=== PATIENT | male | born 1955 | race Caucasian/White ===

== ENCOUNTER → 2016-06-24 | Outpatient (CLI) | payer MEDICARE, MEDICAID ==
[~2016-06-24] MED LIST: ADVAIR; AMIT10TA6; CYCL-181; HYDR-1421; IBUP800T24; IPRA0.035; PRO AIR INH; TOBR0.3S4; [UNRECOGNIZED DRUG - OTHER]
== END | disposition home or self-care (01) ==
LOC: LAB 16:17
PROVIDERS: ATTEND Physician Assistant
DX: N39.0 Urinary tract infection, site not specified (principal)
CPT/HCPCS: 87086

== ENCOUNTER 2018-01-28 20:19 | Inpatient (IN) | payer MEDICARE, MEDICAID ==
[~2018-01-28] VITALS: Ht 180.3 cm; Wt 47.7 kg
[2018-01-28 21:29] LABS: Basophils # (auto) 0 uL; Basophils % (auto) 0.2 % (0.0-2.0); Eosinophils # (auto) 0.1 uL; Eosinophils % (auto) 0.8 % (0.0-7.0); Hematocrit 46.8 % (41.0-53.0); Hemoglobin 15.4 g/dL (13.5-17.5); Lymphocytes # (auto) 1.2 uL; Lymphocytes % (auto) 8.8 % (10.0-50.0); Mean Corpuscular Hemoglobin 27.6 pg (28.0-32.0); Mean Corpuscular Volume 83.8 fL (80.0-100.0); Monocytes # (auto) 1.7 uL; Monocytes % (auto) 12.1 % (0.0-12.0); Neutrophils # (auto) 10.7 uL; Neutrophils % (auto) 78.1 % (37.0-80.0); Platelet Count (auto) 360 10^3/uL (140-450); Red Blood Cells 5.58 10^6/uL (4.5-5.90); Red Cell Distribution Width 13.1 % (11.8-14.3); White Blood Cell 13.7 10^3/uL (4.4-10.8)
[2018-01-28] MEDS ORDERED: LEVOFLOXACIN 750MG 150 ML IV ONE (21:30)
[2018-01-28] MEDS ORDERED: ALBUTEROL SULF 2.5 MG/0.5ML(0.5%) NEB SOLN NEB ONE (21:30)
[2018-01-28] MEDS ORDERED: methylPREDNISolone SOD SUCC 125 MG/2 ML VL IV ONE (21:30)
[2018-01-28] MEDS ORDERED: IPRATROPIUM BROM 0.5 MG/2.5ML INH SOL NEB ONE (21:30)
[2018-01-28 21:55] LABS: Alanine Aminotransferase 37 U/L (16-61); Albumin 2.8 g/dL (3.4-5.0); Alkaline Phosphatase 73 U/L (45-117); Anion Gap 8 (5-15); Aspartate Aminotransferase 16 U/L (15-37); BUN/Creatinine Ratio 22.7; Bilirubin, Total 0.5 mg/dL (0.2-1.0); Blood Urea Nitrogen 27 mg/dL (7-18); Calcium 8.6 mg/dL (8.5-10.1); Carbon Dioxide 30 mmol/L (21-32); Chloride 98 mmol/L (98-107); GFR African American 80 mL/min; GFR Non-African American 66 mL/min; Glucose 91 mg/dL (74-106); Potassium 4.3 mmol/L (3.5-5.1); Sodium 136 mmol/L (136-145); Total Protein 7.7 g/dL (6.4-8.2)
[2018-01-28] MEDS ORDERED: TUBERCULIN PPD 5 UNIT/0.1 ML ID ONE (23:00)
[2018-01-29] MEDS ORDERED: MORPHINE SULF INJ 2 MG/ML SYRINGE 1ML IV PRN (00:15)
[2018-01-29] MEDS ORDERED: ACETAMINOPHEN 500 MG TAB PO PRN (00:15)
[2018-01-29] MEDS ORDERED: ALBUTEROL SULF 2.5 MG/0.5ML(0.5%) NEB SOLN NEB PRN (00:15)
[2018-01-29] MEDS: MAGNESIUM SULFATE 1GM/100ML 100 ML IV SCH ×2 (00:21→01:00)
[2018-01-29 03:21] VITALS: BP 132/73
[2018-01-29] MEDS: MEROPENEM 1gm/20ml IVPUSH 20 ML IV SCH ×4 (06:00→22:38)
[2018-01-29] MEDS: ALBUTEROL SULF 2.5 MG/0.5ML(0.5%) NEB SOLN NEB SCH ×3 (06:58→18:40)
[2018-01-29] MEDS: IPRATROPIUM BROM 0.5 MG/2.5ML INH SOL NEB SCH ×3 (06:58→18:40)
[2018-01-29] MEDS ORDERED: LEVOFLOXACIN 500MG 100 ML IV SCH (10:00)
[2018-01-29 10:33] LABS: Urine Bacteria NONE SEEN /hpf (None Seen); Urine Blood Negative /uL (Negative); Urine Specific Gravity 1.025 (1.001-1.035); Urine WBC <1 /hpf (0 - 3)
[2018-01-29] MEDS: ISONIAZID 300 MG TAB PO SCH (10:57)
[2018-01-29 13:00] VITALS: BP 94/61
[2018-01-29] MEDS ORDERED: TUBERCULIN PPD 5 UNIT/0.1 ML ID ONE (14:30)
[2018-01-29] MEDS: PANTOPRAZOLE 40 MG TAB PO SCH (15:30)
[2018-01-29 17:17] VITALS: BP 102/58
[2018-01-29] MEDS ORDERED: ENOXAPARIN SOD 30 MG/0.3 ML SYRINGE SC ONE (18:00)
[2018-01-29] MEDS: ACETYLCYSTEINE 10 %(100MG/ML) SOL 4ML NEB SCH (18:40)
[2018-01-29 21:51] VITALS: BP 111/62
[2018-01-29] MEDS: methylPREDNISolone SOD SUCC 40 MG/ML VL IV SCH (22:38)
[2018-01-30] MEDS: IPRATROPIUM BROM 0.5 MG/2.5ML INH SOL NEB SCH ×4 (00:01→19:26)
[2018-01-30] MEDS: ALBUTEROL SULF 2.5 MG/0.5ML(0.5%) NEB SOLN NEB SCH ×4 (00:01→19:26)
[2018-01-30] MEDS: ACETYLCYSTEINE 10 %(100MG/ML) SOL 4ML NEB SCH ×4 (00:01→19:26)
[2018-01-30] MEDS: MEROPENEM 1gm/20ml IVPUSH 20 ML IV SCH ×3 (05:53→21:38)
[2018-01-30] MEDS: methylPREDNISolone SOD SUCC 40 MG/ML VL IV SCH ×3 (05:54→21:38)
[2018-01-30 09:00] VITALS: BP 115/67
[2018-01-30] MEDS: PANTOPRAZOLE 40 MG TAB PO SCH (10:00)
[2018-01-30] MEDS: ISONIAZID 300 MG TAB PO SCH (10:01)
[2018-01-30 11:06] LABS: Hematocrit 45.4 % (41.0-53.0); Hemoglobin 14.8 g/dL (13.5-17.5); Mean Corpuscular Hemoglobin 27.1 pg (28.0-32.0); Mean Corpuscular Hgb Conc. 32.5 g/dL (32.0-36.0); Mean Corpuscular Volume 83.4 fL (80.0-100.0); Platelet Count (auto) 376 10^3/uL (140-450); Red Blood Cells 5.45 10^6/uL (4.5-5.90); White Blood Cell 19.8 10^3/uL (4.4-10.8)
[2018-01-30 11:19] LABS: Basophils % (manual) 0 (0.0-2.0); Blast Cells 0; Eosinophils % (manual) 0 (0-7); Lymphocytes % (manual) 0 (10.0-50.0); Metamyelocytes % 0; Myelocytes % 0; Promyelocytes % 0; Reactive Lymphocytes 0
[2018-01-30 11:21] LABS: BUN/Creatinine Ratio 26.7; Calcium 8.7 mg/dL (8.5-10.1); Potassium 4.8 mmol/L (3.5-5.1)
[2018-01-30 11:44] LABS: Band Neutrophils % (manual) 1; Monocytes % (manual) 1 (0-12)
[2018-01-30 13:00] VITALS: BP 98/64
[2018-01-30 22:00] VITALS: BP 104/63
[2018-01-31] MEDS: IPRATROPIUM BROM 0.5 MG/2.5ML INH SOL NEB SCH ×5 (00:44→19:30)
[2018-01-31] MEDS: ACETYLCYSTEINE 10 %(100MG/ML) SOL 4ML NEB SCH ×5 (00:44→19:31)
[2018-01-31] MEDS: ALBUTEROL SULF 2.5 MG/0.5ML(0.5%) NEB SOLN NEB SCH ×5 (00:44→19:30)
[2018-01-31 04:59] VITALS: BP 114/75
[2018-01-31 05:33] LABS: Basophils # (auto) 0 uL; Eosinophils # (auto) 0 uL; Hematocrit 41.6 % (41.0-53.0); Hemoglobin 13.9 g/dL (13.5-17.5); Lymphocytes # (auto) 0.4 uL; Lymphocytes % (auto) 2.6 % (10.0-50.0); Mean Corpuscular Hemoglobin 27.9 pg (28.0-32.0); Mean Corpuscular Hgb Conc. 33.5 g/dL (32.0-36.0); Mean Corpuscular Volume 83.3 fL (80.0-100.0); Monocytes # (auto) 0.2 uL; Monocytes % (auto) 1.2 % (0.0-12.0); Neutrophils # (auto) 15.5 uL; Neutrophils % (auto) 96.2 % (37.0-80.0); Platelet Count (auto) 330 10^3/uL (140-450); Red Blood Cells 4.99 10^6/uL (4.5-5.90); Red Cell Distribution Width 13.2 % (11.8-14.3); White Blood Cell 16.1 10^3/uL (4.4-10.8)
[2018-01-31 05:56] LABS: BUN/Creatinine Ratio 32.7; Calcium 8.2 mg/dL (8.5-10.1); Potassium 4.5 mmol/L (3.5-5.1)
[2018-01-31] MEDS: MEROPENEM 1gm/20ml IVPUSH 20 ML IV SCH ×3 (05:59→21:56)
[2018-01-31] MEDS: methylPREDNISolone SOD SUCC 40 MG/ML VL IV SCH ×3 (06:00→21:56)
[2018-01-31 08:50] VITALS: BP 114/61
[2018-01-31] MEDS: PANTOPRAZOLE 40 MG TAB PO SCH (09:25)
[2018-01-31] MEDS ORDERED: LACTULOSE 20Gm/30ML SOLN PO ONE (12:15)
[2018-01-31] MEDS ORDERED: LACTULOSE 20Gm/30ML SOLN PO PRN (12:15)
[2018-01-31 13:00] VITALS: BP 101/70
[2018-01-31 17:24] VITALS: BP 102/60
[2018-01-31] MEDS: Ensure Enlive Vanilla 8oz Bottle PO SCH (17:52)
[2018-01-31 22:30] VITALS: BP 114/78
[2018-02-01] MEDS: ALBUTEROL SULF 2.5 MG/0.5ML(0.5%) NEB SOLN NEB SCH ×4 (00:43→20:03)
[2018-02-01] MEDS: IPRATROPIUM BROM 0.5 MG/2.5ML INH SOL NEB SCH ×4 (00:44→20:03)
[2018-02-01] MEDS: ACETYLCYSTEINE 10 %(100MG/ML) SOL 4ML NEB SCH ×4 (00:44→20:04)
[2018-02-01 02:25] VITALS: BP 114/78
[2018-02-01 05:35] VITALS: BP 116/68
[2018-02-01] MEDS: MEROPENEM 1gm/20ml IVPUSH 20 ML IV SCH ×3 (05:52→21:54)
[2018-02-01] MEDS: methylPREDNISolone SOD SUCC 40 MG/ML VL IV SCH ×3 (05:52→21:54)
[2018-02-01] MEDS: Ensure Enlive Vanilla 8oz Bottle PO SCH ×3 (08:00→18:00)
[2018-02-01 08:51] VITALS: BP 117/72
[2018-02-01] MEDS: PANTOPRAZOLE 40 MG TAB PO SCH (11:26)
[2018-02-01 13:00] VITALS: BP 96/63
[2018-02-01] MEDS ORDERED: MORPHINE SULF INJ 2 MG/ML SYRINGE 1ML IV PRN (14:30)
[2018-02-01 17:19] VITALS: BP 103/69
[2018-02-01 21:50] VITALS: BP 107/64
[2018-02-02] MEDS: ACETYLCYSTEINE 10 %(100MG/ML) SOL 4ML NEB SCH ×4 (00:51→18:47)
[2018-02-02] MEDS: IPRATROPIUM BROM 0.5 MG/2.5ML INH SOL NEB SCH ×4 (00:52→18:46)
[2018-02-02] MEDS: ALBUTEROL SULF 2.5 MG/0.5ML(0.5%) NEB SOLN NEB SCH ×4 (00:52→18:46)
[2018-02-02 05:00] VITALS: BP 105/62
[2018-02-02] MEDS: MEROPENEM 1gm/20ml IVPUSH 20 ML IV SCH ×2 (05:57→14:28)
[2018-02-02] MEDS: methylPREDNISolone SOD SUCC 40 MG/ML VL IV SCH (05:57)
[2018-02-02] MEDS: Ensure Enlive Vanilla 8oz Bottle PO SCH ×3 (08:00→18:00)
[2018-02-02 09:20] VITALS: BP 107/73
[2018-02-02] MEDS ORDERED: predniSONE 20 MG TAB PO SCH (10:00)
[2018-02-02] MEDS: PANTOPRAZOLE 40 MG TAB PO SCH (10:00)
[2018-02-02] MEDS ORDERED: TOBRAMYCIN 300 MG/5 ML NEB SOLN NEB ONE (11:00)
[2018-02-02] MEDS ORDERED: LINEZOLID 600MG TABLET PO ONE (11:15)
[2018-02-02 13:00] VITALS: BP 114/67
[2018-02-02] MEDS ORDERED: TOBI NEB (14:38)
[2018-02-02] MEDS ORDERED: LEVO250T45 PO (14:38)
[2018-02-02] MEDS ORDERED: PANT40T PO (14:38)
[2018-02-02] MEDS ORDERED: LEVOFLOXACIN 250 MG TAB PO ONE (14:45)
[2018-02-02 17:04] VITALS: BP 103/65
[2018-02-02] MEDS: NYSTATIN (MOUTH-THROAT) 500,000 UNITS/5 ML SUSP MT SCH ×2 (18:00→22:00)
[2018-02-02] MEDS: LINEZOLID 600MG TABLET PO SCH (21:58)
[2018-02-02 22:00] VITALS: BP 115/61
[2018-02-02] MEDS: TOBRAMYCIN 300 MG/5 ML NEB SOLN NEB SCH (22:35)
[2018-02-03 04:52] VITALS: BP 119/79
[2018-02-03] MEDS: NYSTATIN (MOUTH-THROAT) 500,000 UNITS/5 ML SUSP MT SCH ×4 (07:09→21:42)
[2018-02-03] MEDS: ACETYLCYSTEINE 10 %(100MG/ML) SOL 4ML NEB SCH ×4 (07:15→20:03)
[2018-02-03] MEDS: ALBUTEROL SULF 2.5 MG/0.5ML(0.5%) NEB SOLN NEB SCH ×4 (07:15→20:03)
[2018-02-03] MEDS: IPRATROPIUM BROM 0.5 MG/2.5ML INH SOL NEB SCH ×4 (07:15→20:03)
[2018-02-03 09:00] VITALS: BP 110/71
[2018-02-03] MEDS: TOBRAMYCIN 300 MG/5 ML NEB SOLN NEB SCH ×2 (10:12→23:14)
[2018-02-03] MEDS: Ensure Enlive Vanilla 8oz Bottle PO SCH ×3 (11:09→18:45)
[2018-02-03] MEDS: PANTOPRAZOLE 40 MG TAB PO SCH (11:10)
[2018-02-03] MEDS: LINEZOLID 600MG TABLET PO SCH ×2 (11:10→21:42)
[2018-02-03] MEDS: predniSONE 20 MG TAB PO SCH (11:10)
[2018-02-03] MEDS: LEVOFLOXACIN 250 MG TAB PO SCH (11:10)
[2018-02-03 13:00] VITALS: BP 99/70
[2018-02-03 17:04] VITALS: BP 101/73
[2018-02-03 22:00] VITALS: BP 107/66
[2018-02-04] MEDS: ALBUTEROL SULF 2.5 MG/0.5ML(0.5%) NEB SOLN NEB SCH ×4 (00:46→19:40)
[2018-02-04] MEDS: IPRATROPIUM BROM 0.5 MG/2.5ML INH SOL NEB SCH ×4 (00:46→19:40)
[2018-02-04] MEDS: ACETYLCYSTEINE 10 %(100MG/ML) SOL 4ML NEB SCH ×4 (00:47→19:40)
[2018-02-04 03:37] VITALS: BP 107/66
[2018-02-04 04:55] VITALS: BP 99/63
[2018-02-04] MEDS: NYSTATIN (MOUTH-THROAT) 500,000 UNITS/5 ML SUSP MT SCH ×4 (05:56→22:07)
[2018-02-04 09:00] VITALS: BP 97/58
[2018-02-04] MEDS: TOBRAMYCIN 300 MG/5 ML NEB SOLN NEB SCH ×2 (10:45→22:46)
[2018-02-04] MEDS: Ensure Enlive Vanilla 8oz Bottle PO SCH ×3 (11:58→18:42)
[2018-02-04] MEDS: predniSONE 20 MG TAB PO SCH (11:58)
[2018-02-04] MEDS: PANTOPRAZOLE 40 MG TAB PO SCH (11:59)
[2018-02-04] MEDS: LEVOFLOXACIN 250 MG TAB PO SCH (11:59)
[2018-02-04] MEDS: LINEZOLID 600MG TABLET PO SCH ×2 (11:59→22:00)
[2018-02-04 13:00] VITALS: BP 96/65
[2018-02-04 17:19] VITALS: BP 93/71
[2018-02-04 22:00] VITALS: BP 103/63
[2018-02-05] MEDS: ALBUTEROL SULF 2.5 MG/0.5ML(0.5%) NEB SOLN NEB SCH ×4 (00:02→19:32)
[2018-02-05] MEDS: ACETYLCYSTEINE 10 %(100MG/ML) SOL 4ML NEB SCH ×4 (00:02→19:32)
[2018-02-05] MEDS: IPRATROPIUM BROM 0.5 MG/2.5ML INH SOL NEB SCH ×4 (00:02→19:32)
[2018-02-05 05:00] VITALS: BP 103/69
[2018-02-05] MEDS: NYSTATIN (MOUTH-THROAT) 500,000 UNITS/5 ML SUSP MT SCH ×4 (06:32→22:00)
[2018-02-05 08:52] LABS: Basophils # (auto) 0 uL; Eosinophils # (auto) 0.1 uL; Eosinophils % (auto) 0.6 % (0.0-7.0); Hematocrit 47.4 % (41.0-53.0); Hemoglobin 15.8 g/dL (13.5-17.5); Lymphocytes # (auto) 1.5 uL; Lymphocytes % (auto) 12.4 % (10.0-50.0); Mean Corpuscular Hemoglobin 27.9 pg (28.0-32.0); Mean Corpuscular Hgb Conc. 33.3 g/dL (32.0-36.0); Mean Corpuscular Volume 83.8 fL (80.0-100.0); Monocytes # (auto) 1.1 uL; Neutrophils # (auto) 9.6 uL; Platelet Count (auto) 278 10^3/uL (140-450); Red Blood Cells 5.66 10^6/uL (4.5-5.90); Red Cell Distribution Width 13.3 % (11.8-14.3); White Blood Cell 12.3 10^3/uL (4.4-10.8)
[2018-02-05 09:08] LABS: BUN/Creatinine Ratio 26.2; Calcium 8.3 mg/dL (8.5-10.1)
[2018-02-05 09:25] VITALS: BP 105/67
[2018-02-05] MEDS: TOBRAMYCIN 300 MG/5 ML NEB SOLN NEB SCH ×2 (09:50→22:15)
[2018-02-05] MEDS: predniSONE 20 MG TAB PO SCH (10:00)
[2018-02-05] MEDS: PANTOPRAZOLE 40 MG TAB PO SCH (10:00)
[2018-02-05] MEDS: Ensure Enlive Vanilla 8oz Bottle PO SCH ×3 (10:47→18:15)
[2018-02-05] MEDS: LEVOFLOXACIN 250 MG TAB PO SCH (10:47)
[2018-02-05] MEDS: LINEZOLID 600MG TABLET PO SCH ×2 (10:48→22:00)
[2018-02-05 12:30] VITALS: BP 82/59
[2018-02-05 16:12] VITALS: BP 94/61
[2018-02-05 22:00] VITALS: BP 99/64
[2018-02-06] MEDS: ACETYLCYSTEINE 10 %(100MG/ML) SOL 4ML NEB SCH ×4 (00:43→19:03)
[2018-02-06] MEDS: IPRATROPIUM BROM 0.5 MG/2.5ML INH SOL NEB SCH ×4 (00:43→19:02)
[2018-02-06] MEDS: ALBUTEROL SULF 2.5 MG/0.5ML(0.5%) NEB SOLN NEB SCH ×4 (00:43→19:03)
[2018-02-06 05:00] VITALS: BP 115/66
[2018-02-06] MEDS: NYSTATIN (MOUTH-THROAT) 500,000 UNITS/5 ML SUSP MT SCH ×4 (06:01→22:28)
[2018-02-06 09:00] VITALS: BP 108/67
[2018-02-06] MEDS: Ensure Enlive Vanilla 8oz Bottle PO SCH ×3 (09:32→18:24)
[2018-02-06] MEDS: predniSONE 5 MG TAB PO SCH (09:42)
[2018-02-06] MEDS: predniSONE 20 MG TAB PO SCH (09:42)
[2018-02-06] MEDS: LINEZOLID 600MG TABLET PO SCH ×2 (09:42→22:28)
[2018-02-06] MEDS: PANTOPRAZOLE 40 MG TAB PO SCH (09:42)
[2018-02-06] MEDS: LEVOFLOXACIN 250 MG TAB PO SCH (09:44)
[2018-02-06] MEDS ORDERED: predniSONE 20 MG TAB PO SCH (10:00)
[2018-02-06] MEDS: TOBRAMYCIN 300 MG/5 ML NEB SOLN NEB SCH ×2 (10:25→22:21)
[2018-02-06 12:49] VITALS: BP 91/55
[2018-02-06 22:00] VITALS: BP 119/71
[2018-02-07] MEDS: IPRATROPIUM BROM 0.5 MG/2.5ML INH SOL NEB SCH ×4 (00:18→11:47)
[2018-02-07] MEDS: ACETYLCYSTEINE 10 %(100MG/ML) SOL 4ML NEB SCH ×4 (00:18→11:47)
[2018-02-07] MEDS: ALBUTEROL SULF 2.5 MG/0.5ML(0.5%) NEB SOLN NEB SCH ×4 (00:19→11:48)
[2018-02-07 03:01] VITALS: BP 119/71
[2018-02-07 05:00] VITALS: BP 113/71
[2018-02-07] MEDS: NYSTATIN (MOUTH-THROAT) 500,000 UNITS/5 ML SUSP MT SCH ×2 (05:59→12:07)
[2018-02-07] MEDS: TOBRAMYCIN 300 MG/5 ML NEB SOLN NEB SCH (06:51)
[2018-02-07 08:00] VITALS: BP 113/72
[2018-02-07] MEDS: Ensure Enlive Vanilla 8oz Bottle PO SCH ×2 (08:16→12:07)
[2018-02-07 09:00] VITALS: BP 113/72
[2018-02-07] MEDS: LINEZOLID 600MG TABLET PO SCH (09:32)
[2018-02-07] MEDS: PANTOPRAZOLE 40 MG TAB PO SCH (09:32)
[2018-02-07] MEDS: predniSONE 5 MG TAB PO SCH (09:32)
[2018-02-07] MEDS: predniSONE 20 MG TAB PO SCH (09:32)
[2018-02-07] MEDS: LEVOFLOXACIN 250 MG TAB PO SCH (09:32)
[2018-02-07 11:40] VITALS: BP 108/65
== END 2018-02-07 15:52 | disposition home or self-care (01) | DRG 177 ==
LOC: ER 20:19 → TELE 20:20 → TELE-WESTW 01-29 08:19 → WEST WING 01-30 02:06
PROVIDERS: ADMIT Nurse Practitioner Family; ATTEND Internal Medicine
DX: J15.1 Pneumonia due to Pseudomonas (principal); E43 Unspecified severe protein-calorie malnutrition; S22.49XA Multiple fractures of ribs, unspecified side, initial encounter for closed fracture; J98.11 Atelectasis; Z68.1 Body mass index [BMI] 19.9 or less, adult; J47.0 Bronchiectasis with acute lower respiratory infection; J98.19 Other pulmonary collapse; J15.212 Pneumonia due to Methicillin resistant Staphylococcus aureus; M35.9 Systemic involvement of connective tissue, unspecified; Z16.24 Resistance to multiple antibiotics; M06.9 Rheumatoid arthritis, unspecified; J43.9 Emphysema, unspecified; T38.0X5A Adverse effect of glucocorticoids and synthetic analogues, initial encounter; Y92.89 Other specified places as the place of occurrence of the external cause; Z78.9 Other specified health status; Z82.3 Family history of stroke; Z82.49 Family history of ischemic heart disease and other diseases of the circulatory system; Z87.01 Personal history of pneumonia (recurrent); Z23 Encounter for immunization
CPT/HCPCS: 36415; 71045; 71250; 80048; 80053; 81001; 83880; 84484; 85007; 85025; 85027; 85379; 87040; 87070; 87077; 87186; 87205; 93005; 94640; 94667; 94668; 96365; 96366; 96375; 96379; J1956

== ENCOUNTER 2021-05-15 23:54 | Inpatient (IN) | payer MEDICARE, MEDICAID ==
[~2021-05-15] VITALS: Ht 180.3 cm; Wt 51.1 kg
[~2021-05-15 23:54] MED LIST changes: -AMIT10TA6; +AMIT1TAB34; -IBUP800T24; +IBUP800T27; +LEVO250T19 PO; +PANT40T PO; +TOBI NEB; -TOBR0.3S4
[2021-05-16 02:24] LABS: Basophils # (auto) 0 10 ^3/uL (0-0.2); Basophils % (auto) 0.3 % (0.0-2.0); Eosinophils # (auto) 0 10 ^3/uL (0-0.8); Eosinophils % (auto) 0.6 % (0.0-7.0); Hematocrit 42.9 % (41.0-53.0); Hemoglobin 14.1 g/dL (13.5-17.5); Lymphocytes % (auto) 15.4 % (10.0-50.0); Mean Corpuscular Hemoglobin 28.2 pg (28.0-32.0); Mean Corpuscular Volume 85.4 fL (80.0-100.0); Monocytes # (auto) 0.9 10 ^3/uL (0-1.3); Monocytes % (auto) 13.3 % (0.0-12.0); Neutrophils # (auto) 4.8 10 ^3/uL (1.6-8.6); Neutrophils % (auto) 70.4 % (37.0-80.0); Nucleated Red Blood Cells % 0.2 %; Red Blood Cells 5.02 10^6/uL (4.5-5.90); Red Cell Distribution Width 13.3 % (11.8-14.3); White Blood Cell 6.8 10^3/uL (4.4-10.8)
[2021-05-16 02:38] LABS: INR 1.16 (0.9-1.15)
[2021-05-16 02:41] LABS: Albumin 3.3 g/dL (3.4-5.0); Calcium 8.2 mg/dL (8.5-10.1); Magnesium 2.5 mg/dL (1.6-2.6); Potassium 3.3 mmol/L (3.5-5.1)
[2021-05-16 02:48] LABS: BUN/Creatinine Ratio 23.8; Bilirubin, Total 0.5 mg/dL (0.2-1.0); Total Protein 6.8 g/dL (6.4-8.2)
[2021-05-16] MEDS ORDERED: ONDANSETRON HCL 4 MG/2 ML VIAL IV PRN (05:30)
[2021-05-16] MEDS ORDERED: DOCUSATE SOD 100 MG CAP PO PRN (05:30)
[2021-05-16] MEDS ORDERED: ACETAMINOPHEN 325 MG TAB PO PRN (05:30)
[2021-05-16] MEDS: SODIUM CHLORIDE 0.9% 1,000 ML IV SCH ×2 (06:30→22:10)
[2021-05-16] MEDS ORDERED: MORPHINE SULFATE INJECTION 2 MG/ML SYRG IV PRN (06:30)
[2021-05-16] MEDS ORDERED: NITROGLYCERIN 0.4 MG SL TAB SL PRN (06:30)
[2021-05-16] MEDS: POTASSIUM CHL 20MEQ/100ML 100 ML IV SCH ×2 (07:15→07:30)
[2021-05-16 09:02] LABS: Basophils # (auto) 0 10 ^3/uL (0-0.2); Basophils % (auto) 0.3 % (0.0-2.0); Eosinophils # (auto) 0.1 10 ^3/uL (0-0.8); Eosinophils % (auto) 1.8 % (0.0-7.0); Hematocrit 42.2 % (41.0-53.0); Hemoglobin 13.7 g/dL (13.5-17.5); Lymphocytes # (auto) 1.7 10 ^3/uL (0.4-5.4); Lymphocytes % (auto) 23.3 % (10.0-50.0); Mean Corpuscular Hemoglobin 27.6 pg (28.0-32.0); Mean Corpuscular Hgb Conc. 32.6 g/dL (32.0-36.0); Mean Corpuscular Volume 84.7 fL (80.0-100.0); Monocytes # (auto) 0.9 10 ^3/uL (0-1.3); Monocytes % (auto) 12.8 % (0.0-12.0); Neutrophils # (auto) 4.5 10 ^3/uL (1.6-8.6); Neutrophils % (auto) 61.8 % (37.0-80.0); Nucleated Red Blood Cells % 0.2 %; Red Blood Cells 4.98 10^6/uL (4.5-5.90); Red Cell Distribution Width 13.1 % (11.8-14.3); White Blood Cell 7.2 10^3/uL (4.4-10.8)
[2021-05-16 09:16] LABS: Calcium 8.1 mg/dL (8.5-10.1); Potassium 4.2 mmol/L (3.5-5.1)
[2021-05-16 09:20] LABS: BUN/Creatinine Ratio 25.7; Bilirubin, Total 0.6 mg/dL (0.2-1.0); Total Protein 6.5 g/dL (6.4-8.2)
[2021-05-16] MEDS: ENOXAPARIN SOD 40 MG/0.4 ML SYRINGE SC SCH (10:38)
[2021-05-16] MEDS: ASPirin 81 mg TAB PO SCH (10:38)
[2021-05-16] MEDS: FAMOTIDINE (10MG/ML) 2ML VL IV SCH (10:38)
[2021-05-16] MEDS ORDERED: POTASSIUM EFFERVESENT TAB 25 MEQ PO ONE (12:30)
[2021-05-17 06:43] LABS: Albumin 3.2 g/dL (3.4-5.0); Calcium 8.2 mg/dL (8.5-10.1); Potassium 4.4 mmol/L (3.5-5.1)
[2021-05-17 06:46] LABS: Bilirubin, Total 0.4 mg/dL (0.2-1.0); Total Protein 7.1 g/dL (6.4-8.2)
[2021-05-17 06:51] LABS: Basophils # (auto) 0 10 ^3/uL (0-0.2); Basophils % (auto) 0.2 % (0.0-2.0); Eosinophils # (auto) 0.2 10 ^3/uL (0-0.8); Eosinophils % (auto) 2.8 % (0.0-7.0); Hematocrit 46.2 % (41.0-53.0); Hemoglobin 15.4 g/dL (13.5-17.5); Lymphocytes # (auto) 1.4 10 ^3/uL (0.4-5.4); Lymphocytes % (auto) 22.3 % (10.0-50.0); Mean Corpuscular Hemoglobin 28.4 pg (28.0-32.0); Mean Corpuscular Hgb Conc. 33.4 g/dL (32.0-36.0); Monocytes # (auto) 0.9 10 ^3/uL (0-1.3); Monocytes % (auto) 13.6 % (0.0-12.0); Neutrophils % (auto) 61.1 % (37.0-80.0); Nucleated Red Blood Cells % 0.1 %; Red Blood Cells 5.44 10^6/uL (4.5-5.90); Red Cell Distribution Width 12.9 % (11.8-14.3); White Blood Cell 6.5 10^3/uL (4.4-10.8)
[2021-05-17] MEDS: ASPirin 81 mg TAB PO SCH (10:05)
[2021-05-17] MEDS: ENOXAPARIN SOD 40 MG/0.4 ML SYRINGE SC SCH (10:05)
[2021-05-17] MEDS: FAMOTIDINE (10MG/ML) 2ML VL IV SCH (10:46)
[2021-05-17] MEDS: SODIUM CHLORIDE 0.9% 1,000 ML IV SCH (15:27)
[2021-05-17] MEDS ORDERED: ACETAMINOPHEN 500 MG TAB PO PRN (16:45)
[2021-05-17] MEDS ORDERED: ALBUTEROL SULF HFA 90MCG INH 200DOSE IN PRN ×2 (16:45→17:00)
[2021-05-17] MEDS ORDERED: ALBU108A14 IN (21:39)
[2021-05-17] MEDS ORDERED: TIOTCAP IN (21:39)
[2021-05-17] MEDS ORDERED: ALBU0.633 IN (21:39)
[2021-05-17 22:00] VITALS: BP 111/76
[2021-05-17] MEDS ORDERED: BUDESONIDE (INHALATION) 180 MCG IH IN SCH ×2 (22:00)
[2021-05-17] MEDS: D5W 5% 1,000 ML IV SCH (22:46)
[2021-05-18 08:30] VITALS: BP 112/74
[2021-05-18] MEDS: D5W 5% 1,000 ML IV SCH (08:30)
[2021-05-18] MEDS: CHOLECALCIFEROL (VITD3) 2,000 UNIT CAP/TAB PO SCH (09:20)
[2021-05-18] MEDS: ASPirin 81 mg TAB PO SCH (09:20)
[2021-05-18] MEDS: ENOXAPARIN SOD 40 MG/0.4 ML SYRINGE SC SCH (09:21)
[2021-05-18] MEDS ORDERED: ASCORBIC ACID 1,000 MG TAB PO SCH (10:00)
[2021-05-18] MEDS ORDERED: ZINC SULFATE 220mg CAP or TAB PO SCH (10:00)
[2021-05-18] MEDS ORDERED: DexAMETHasone SOD PHOS 10MG/1ML VIAL INJ IV SCH (10:00)
[2021-05-18] MEDS ORDERED: guaiFENesin-DM 100/10mg/5ml SYR PO PRN (13:00)
[2021-05-18 13:30] VITALS: BP 116/70
[2021-05-18] MEDS: predniSONE 20 MG TAB PO SCH (13:44)
[2021-05-18] MEDS ORDERED: levoFLOXacin 500MG 100 ML IV ONE (16:15)
[2021-05-18 16:48] VITALS: BP 110/73
[2021-05-18 22:00] VITALS: BP 124/75
[2021-05-19 05:17] VITALS: BP 120/77
[2021-05-19 08:00] VITALS: BP 136/68
[2021-05-19] MEDS ORDERED: levoFLOXacin 500MG 100 ML IV SCH (10:00)
[2021-05-19] MEDS: predniSONE 20 MG TAB PO SCH (10:09)
[2021-05-19] MEDS: CHOLECALCIFEROL (VITD3) 2,000 UNIT CAP/TAB PO SCH (10:09)
[2021-05-19] MEDS: ASPirin 81 mg TAB PO SCH (10:09)
[2021-05-19] MEDS: ENOXAPARIN SOD 40 MG/0.4 ML SYRINGE SC SCH (10:10)
[2021-05-19 10:13] VITALS: BP 136/68
[2021-05-19 11:46] LABS: Protein, Urine 18.6 mg/dL (0.0-11.9)
[2021-05-19 11:55] LABS: Urine Bacteria NONE SEEN /hpf (None Seen); Urine Blood Negative /uL (Negative); Urine Specific Gravity 1.013 (1.001-1.035); Urine WBC <1 /hpf (0 - 3)
[2021-05-19 13:30] VITALS: BP 116/75
[2021-05-19] MEDS ORDERED: PRED20TA2 PO (14:48)
[2021-05-19 16:30] VITALS: BP 116/74
[2021-05-19 17:36] VITALS: BP 116/74
== END 2021-05-19 19:35 | disposition home or self-care (01) | DRG 189 ==
LOC: ER 23:54 → TELE 05-16 06:26 → TELE-WESTW 05-17 20:30 → WEST WING 05-18 13:09
PROVIDERS: ADMIT Nurse Practitioner Family; ATTEND Internal Medicine
DX: J96.20 Acute and chronic respiratory failure, unspecified whether with hypoxia or hypercapnia (principal); E87.1 Hypo-osmolality and hyponatremia; Z16.23 Resistance to quinolones and fluoroquinolones; D84.9 Immunodeficiency, unspecified; J43.9 Emphysema, unspecified; E87.6 Hypokalemia; M06.9 Rheumatoid arthritis, unspecified; M19.90 Unspecified osteoarthritis, unspecified site; R77.8 Other specified abnormalities of plasma proteins; R79.89 Other specified abnormal findings of blood chemistry; Z20.822 Contact with and (suspected) exposure to COVID-19; Z88.1 Allergy status to other antibiotic agents; Z88.5 Allergy status to narcotic agent
CPT/HCPCS: 36415; 71045; 71250; 80053; 81001; 82306; 82570; 83605; 83615; 83735; 83880; 83930; 83935; 84156; 84295; 84300; 84484; 85025; 85379; 85610; 87040; 87070; 87077; 87186; 87205; 87426; 93005; 96361; 96374; G0378; J1100; J1956; J3480; J3490

== ENCOUNTER 2023-12-09 12:43 | Inpatient (IN) | payer MEDICARE, MEDICAID ==
[~2023-12-09] VITALS: Ht 180.3 cm; Wt 46.1 kg
[~2023-12-09 12:43] MED LIST changes: -ADVAIR; +ALBU0.636 IN; +ALBU108A14 IN; +AMIT10TA12; -AMIT1TAB34; -IBUP800T27; -IPRA0.035; -LEVO250T19 PO; -PANT40T PO; -PRO AIR INH; +TIOTCAP IN; -TOBI NEB; -[UNRECOGNIZED DRUG - OTHER]
[2023-12-09 17:52] LABS: Basophils # (auto) 0.1 10 ^3/uL (0-0.2); Eosinophils # (auto) 0 10 ^3/uL (0-0.8); Monocytes # (auto) 0.6 10 ^3/uL (0-1.3)
[2023-12-09 17:53] LABS: Basophils % (auto) 0.4 % (0.0-2.0); Hematocrit 42.6 % (41.0-53.0); Hemoglobin 13.6 g/dL (13.5-17.5); Lymphocytes # (auto) 0.2 10 ^3/uL (0.4-5.4); Lymphocytes % (auto) 0.8 % (10.0-50.0); Mean Corpuscular Hemoglobin 25.9 pg (28.0-32.0); Neutrophils # (auto) 27.2 10 ^3/uL (1.6-8.6); Neutrophils % (auto) 96.8 % (37.0-80.0); Red Blood Cells 5.26 10^6/uL (4.5-5.90); Red Cell Distribution Width 13.9 % (11.8-14.3); White Blood Cell 28.1 10^3/uL (4.4-10.8)
[2023-12-09 18:39] LABS: Base Excess 2.5 mmol/L (-2.0-2.0)
[2023-12-09 18:43] LABS: Alanine Aminotransferase 10 U/L (7-40); Albumin 3.3 g/dL (3.2-4.8); Alkaline Phosphatase 71 U/L (46-116); Anion Gap 8 (5-15); Aspartate Aminotransferase 10 U/L (13-40); BUN/Creatinine Ratio 29.8 (10.0-20.0); Blood Urea Nitrogen 25 mg/dL (9-23); Calcium 8.9 mg/dL (8.7-10.4); Carbon Dioxide 23 mmol/L (20-30); Chloride 100 mmol/L (98-107); Glucose 186 mg/dL (74-106); Potassium 3.9 mmol/L (3.5-5.1); Sodium 131 mmol/L (136-145)
[2023-12-09 18:44] LABS: Bilirubin, Total 0.5 mg/dL (0.2-1.0); Total Protein 6.1 g/dL (5.7-8.2)
[2023-12-09] MEDS: PIPERACILLIN-TAZOB 3.375GM 100 ML IV ONE (20:46)
[2023-12-09] MEDS: ALBUTEROL SULF 2.5 MG/0.5ML(0.5%) NEB SOLN NEB ONE (20:53)
[2023-12-09] MEDS: BUDESONIDE (INHALATION) 0.5 MG/2 ML NEB NEB ONE (20:53)
[2023-12-09] MEDS: IPRATROPIUM BROM 0.5 MG/2.5ML INH SOL NEB ONE (20:53)
[2023-12-09 21:00] VITALS: O2SAT 92
[2023-12-09 21:11] LABS: COVID19 ANTIGEN SOFIA FIA NEGATIVE (NEGATIVE); Rapid Influenza A Negative (Negative); Rapid Influenza B Negative (Negative)
[2023-12-09] MEDS: ENOXAPARIN SOD 40 MG/0.4 ML SYRINGE SC ONE (22:19)
[2023-12-09] MEDS ORDERED: ALBUTEROL SULF 2.5 MG/0.5ML(0.5%) NEB SOLN NEB PRN (22:45)
[2023-12-09] MEDS ORDERED: ONDANSETRON HCL 4 MG/2 ML VIAL IV PRN (22:45)
[2023-12-09] MEDS ORDERED: IPRATROPIUM BROM 0.5 MG/2.5ML INH SOL NEB PRN (22:45)
[2023-12-09] MEDS ORDERED: DOCUSATE SOD 100 MG CAP PO PRN (22:45)
[2023-12-09] MEDS ORDERED: ACETAMINOPHEN 325 MG TAB PO PRN (22:45)
[2023-12-09 23:06] VITALS: BP 114/55; PULSE 100; RESP 18; TEMP 97.9; O2SAT 95
[2023-12-09] MEDS ORDERED: MORPHINE SULFATE INJ 2 MG/ml SYRG IV PRN (23:30)
[2023-12-09] MEDS ORDERED: NITROGLYCERIN 0.4 MG SL TAB SL PRN (23:30)
[2023-12-10] VITALS (11 sets, daily range): BP systolic 102–112; BP diastolic 52–64; PULSE 79–105; RESP 13–20; TEMP 97.2–97.9; O2SAT 93–97
[2023-12-10] MEDS: methylPREDNISolone SOD SUCC 125 MG/2 ML VL IM ONE (00:31)
[2023-12-10] MEDS: SODIUM CHLORIDE 0.9% 1,000 ML IV SCH (00:31)
[2023-12-10] MEDS: DOXYCYCLINE 100MG/250ML 250 ML IV SCH (00:49)
[2023-12-10] MEDS ORDERED: HYDROcodone-ACET 5/325MG TAB PO PRN (01:00)
[2023-12-10 03:09] LABS: Urine Bacteria None Seen /hpf (None Seen)
[2023-12-10 03:28] LABS: Urine Blood Negative /uL (Negative); Urine Clarity Clear (Clear); Urine Color Yellow (Yellow); Urine Mucus FEW (None Seen); Urine Protein, UAD 1+ (Negative); Urine Specific Gravity 1.043 (1.001-1.035); Urine Urobilinogen Normal (Negative); Urine WBC 1 /hpf (0 - 3)
[2023-12-10 05:59] LABS: Basophils # (auto) 0 10 ^3/uL (0-0.2); Eosinophils # (auto) 0 10 ^3/uL (0-0.8); Hematocrit 38.7 % (41.0-53.0); Hemoglobin 12.6 g/dL (13.5-17.5); Lymphocytes # (auto) 0.2 10 ^3/uL (0.4-5.4); Mean Corpuscular Hemoglobin 26.2 pg (28.0-32.0); Mean Corpuscular Hgb Conc. 32.6 g/dL (32.0-36.0); Mean Corpuscular Volume 80.3 fL (80.0-100.0); Monocytes # (auto) 0.3 10 ^3/uL (0-1.3); Monocytes % (auto) 1.4 % (0.0-12.0); Neutrophils # (auto) 20.7 10 ^3/uL (1.6-8.6); Neutrophils % (auto) 97.6 % (37.0-80.0); Red Blood Cells 4.82 10^6/uL (4.5-5.90); Red Cell Distribution Width 13.9 % (11.8-14.3); White Blood Cell 21.2 10^3/uL (4.4-10.8)
[2023-12-10] MEDS: methylPREDNISolone SOD SUCC 40 MG/ML VL IV SCH (06:14)
[2023-12-10 06:15] LABS: Alanine Aminotransferase 11 U/L (7-40); Albumin 3.4 g/dL (3.2-4.8); Alkaline Phosphatase 71 U/L (46-116); Anion Gap 5 (5-15); Aspartate Aminotransferase 11 U/L (13-40); BUN/Creatinine Ratio 35.7 (10.0-20.0); Bilirubin, Total 0.5 mg/dL (0.2-1.0); Blood Urea Nitrogen 30 mg/dL (9-23); Calcium 8.9 mg/dL (8.5-10.1); Carbon Dioxide 29 mmol/L (20-30); Chloride 101 mmol/L (98-107); Glucose 150 mg/dL (74-106); Potassium 3.8 mmol/L (3.5-5.1); Sodium 135 mmol/L (136-145); Total Protein 6.1 g/dL (5.7-8.2)
[2023-12-10] MEDS: cefTRIAXone 1GM/50ML D5W 50 ML IV SCH (09:35)
[2023-12-10] MEDS: FAMOTIDINE (10MG/ML) 2ML VL IV SCH (09:35)
[2023-12-10] MEDS: ENOXAPARIN SOD 40 MG/0.4 ML SYRINGE SC SCH (21:57)
[2023-12-11] VITALS (10 sets, daily range): BP systolic 102–124; BP diastolic 49–73; PULSE 64–93; RESP 15–22; TEMP 97.2–98.3; O2SAT 96–100
[2023-12-11 10:35] LABS: Hepatitis B Surface Antigen Negative (Negative)
[2023-12-11 10:57] LABS: Hepatitis C Antibody Negative (Negative)
[2023-12-11] MEDS: Ensure Enlive Vanilla 8oz Bottle PO SCH (13:47)
[2023-12-12] VITALS (9 sets, daily range): BP systolic 109–121; BP diastolic 51–68; PULSE 76–104; RESP 16–20; TEMP 97.5–98.4; O2SAT 92–99
[2023-12-13] VITALS (7 sets, daily range): BP systolic 110–133; BP diastolic 57–72; PULSE 81–104; RESP 16–19; TEMP 37.1; O2SAT 94–99
[2023-12-13] MEDS ORDERED: DOXY-267 PO (12:26)
[2023-12-13] MEDS ORDERED: PRED20TA2 PO (12:26)
== END 2023-12-13 16:50 | disposition home or self-care (01) | DRG 871 ==
LOC: ER 12:43 → EDBD 12:43 → EDUNIT# 12:43 → TELE 23:20 → TELE-CENTR 12-10 01:32
PROVIDERS: ADMIT Nurse Practitioner Family; ATTEND Family Medicine
DX: A41.9 Sepsis, unspecified organism (principal); J15.69 Pneumonia due to other Gram-negative bacteria; J96.01 Acute respiratory failure with hypoxia; J15.9 Unspecified bacterial pneumonia; E87.1 Hypo-osmolality and hyponatremia; J47.0 Bronchiectasis with acute lower respiratory infection; Z68.1 Body mass index [BMI] 19.9 or less, adult; R73.9 Hyperglycemia, unspecified; J43.9 Emphysema, unspecified; R62.7 Adult failure to thrive; Z20.822 Contact with and (suspected) exposure to COVID-19; Z63.4 Disappearance and death of family member; Z88.5 Allergy status to narcotic agent; Z88.8 Allergy status to other drugs, medicaments and biological substances; Z91.041 Radiographic dye allergy status; Z79.899 Other long term (current) drug therapy; Z88.1 Allergy status to other antibiotic agents; Z99.81 Dependence on supplemental oxygen; Z82.3 Family history of stroke; Z82.0 Family history of epilepsy and other diseases of the nervous system; Z82.5 Family history of asthma and other chronic lower respiratory diseases
CPT/HCPCS: 36415; 36600; 71045; 78582; 80053; 81001; 82805; 83036; 83605; 83880; 84484; 85025; 85379; 86803; 87040; 87340; 87426; 87804; 93005; 93970; 94640; 96365; 96372; G0378; J2543; J3490

== ENCOUNTER 2024-02-14 18:32 | Inpatient (IN) | payer MEDICARE, MEDICAID ==
[~2024-02-14] VITALS: Ht 180.3 cm; Wt 49.8 kg
[~2024-02-14 18:32] MED LIST changes: +DOXY-267 PO; +PRED20TA2 PO
[2024-02-14 19:35] LABS: Basophils # (auto) 0 10 ^3/uL (0-0.2); Basophils % (auto) 0.2 % (0.0-2.0); Eosinophils # (auto) 0 10 ^3/uL (0-0.8); Eosinophils % (auto) 0.1 % (0.0-7.0); Hematocrit 36.2 % (41.0-53.0); Hemoglobin 12.2 g/dL (13.5-17.5); Lymphocytes # (auto) 0.5 10 ^3/uL (0.4-5.4); Lymphocytes % (auto) 2.5 % (10.0-50.0); Mean Corpuscular Hemoglobin 27.5 pg (28.0-32.0); Mean Corpuscular Hgb Conc. 33.6 g/dL (32.0-36.0); Monocytes # (auto) 1.3 10 ^3/uL (0-1.3); Monocytes % (auto) 6.9 % (0.0-12.0); Neutrophils # (auto) 17.6 10 ^3/uL (1.6-8.6); Neutrophils % (auto) 90.3 % (37.0-80.0); Nucleated Red Blood Cells % 0.1 %; Platelet Count (auto) 282 10^3/uL (140-450); Red Blood Cells 4.41 10^6/uL (4.5-5.90); White Blood Cell 19.5 10^3/uL (4.4-10.8)
[2024-02-14 19:50] LABS: Alanine Aminotransferase 11 U/L (7-40); Albumin 3.7 g/dL (3.2-4.8); Alkaline Phosphatase 104 U/L (46-116); Anion Gap 6 (5-15); Aspartate Aminotransferase 14 U/L (13-40); BUN/Creatinine Ratio 33.3 (10.0-20.0); Blood Urea Nitrogen 30 mg/dL (9-23); Calcium 9.4 mg/dL (8.7-10.4); Carbon Dioxide 31 mmol/L (20-30); Chloride 98 mmol/L (98-107); Glucose 100 mg/dL (74-106); INR 1.25 (0.9-1.15); Magnesium 1.9 mg/dL (1.6-2.6); Partial Thromboplastin Time 30.8 SEC (24.5-34.5); Sodium 135 mmol/L (136-145)
[2024-02-14 19:51] LABS: Bilirubin, Total 0.4 mg/dL (0.2-1.0); Total Protein 6.7 g/dL (5.7-8.2)
[2024-02-14 20:19] LABS: Base Excess 2.5 mmol/L (-2.0-3.0)
[2024-02-14] MEDS: IPRATROPIUM BROM 0.5 MG/2.5ML INH SOL NEB ONE (20:35)
[2024-02-14] MEDS: ALBUTEROL SULF 2.5 MG/0.5ML(0.5%) NEB SOLN NEB ONE (20:36)
[2024-02-14] MEDS ORDERED: ONDANSETRON HCL 4 MG/2 ML VIAL IV PRN (23:45)
[2024-02-14] MEDS ORDERED: IPRATROPIUM BROM 0.5 MG/2.5ML INH SOL NEB PRN (23:45)
[2024-02-14] MEDS ORDERED: MORPHINE SULFATE INJ 2 MG/ml SYRG IV PRN (23:45)
[2024-02-14] MEDS ORDERED: NITROGLYCERIN 0.4 MG SL TAB SL PRN (23:45)
[2024-02-14] MEDS ORDERED: TEMAZEPAM 15 MG CAP PO PRN (23:45)
[2024-02-14] MEDS ORDERED: ALBUTEROL SULF 2.5 MG/0.5ML(0.5%) NEB SOLN NEB PRN (23:45)
[2024-02-14 23:49] VITALS: BP 117/78; PULSE 116; RESP 20; TEMP 98.3; O2SAT 95
[2024-02-14] MEDS: methylPREDNISolone SOD SUCC 125 MG/2 ML VL IV ONE (23:54)
[2024-02-14] MEDS: cefTRIAXone 1GM/50ML D5W 50 ML IV ONE (23:54)
[2024-02-15] VITALS (7 sets, daily range): BP systolic 128; BP diastolic 77; PULSE 90–102; RESP 19–21; TEMP 97.5; O2SAT 91–95
[2024-02-15] MEDS: levoFLOXacin 500MG 100 ML IV ONE (00:34)
[2024-02-15 06:58] LABS: Hematocrit 35.9 % (41.0-53.0); Hemoglobin 11.7 g/dL (13.5-17.5); Mean Corpuscular Hemoglobin 26.9 pg (28.0-32.0); Mean Corpuscular Hgb Conc. 32.4 g/dL (32.0-36.0); Platelet Count (auto) 227 10^3/uL (140-450); Red Blood Cells 4.33 10^6/uL (4.5-5.90); Red Cell Distribution Width 14.8 % (11.8-14.3); White Blood Cell 11.4 10^3/uL (4.4-10.8)
[2024-02-15 07:00] LABS: Band Neutrophils % (manual) 0; Basophils % (manual) 0 (0.0-2.0); Blast Cells 0; Eosinophils % (manual) 0 (0-7); Metamyelocytes % 0; Myelocytes % 0; Promyelocytes % 0; Reactive Lymphocytes 0
[2024-02-15 07:23] LABS: Alanine Aminotransferase 10 U/L (7-40); Alkaline Phosphatase 91 U/L (46-116); Anion Gap 6 (5-15); BUN/Creatinine Ratio 30.9 (10.0-20.0); Blood Urea Nitrogen 25 mg/dL (9-23); Calcium 9.6 mg/dL (8.7-10.4); Carbon Dioxide 28 mmol/L (20-30); Chloride 98 mmol/L (98-107); Glucose 104 mg/dL (74-106); Potassium 4.8 mmol/L (3.5-5.1); Sodium 132 mmol/L (136-145)
[2024-02-15 07:24] LABS: Albumin 3.7 g/dL (3.2-4.8); Aspartate Aminotransferase 13 U/L (13-40); Bilirubin, Total 0.3 mg/dL (0.2-1.0)
[2024-02-15 07:53] LABS: Lymphocytes % (manual) 4 (10.0-50.0); Monocytes % (manual) 2 (0-12); Platelet Estimate Adequate
[2024-02-15 08:21] LABS: COVID19 ANTIGEN SOFIA FIA NEGATIVE (NEGATIVE)
[2024-02-15 08:22] LABS: Urine Bacteria None Seen /hpf (None Seen)
[2024-02-15 10:35] LABS: Urine Blood Negative /uL (Negative); Urine Clarity Clear (Clear); Urine Color Light-Yellow (Yellow); Urine Protein, UAD 1+ (Negative); Urine Specific Gravity 1.025 (1.001-1.035); Urine Urobilinogen Normal (Negative); Urine WBC <1 /hpf (0 - 3)
[2024-02-15] MEDS: methylPREDNISolone SOD SUCC 40 MG/ML VL IV SCH (10:42)
[2024-02-15] MEDS: FUROSEMIDE 20 MG TAB PO SCH (10:42)
[2024-02-15] MEDS: ZINC SULFATE 220mg CAP or TAB PO SCH (10:42)
[2024-02-15] MEDS: ENOXAPARIN SOD 40 MG/0.4 ML SYRINGE SC SCH (10:43)
[2024-02-15] MEDS: ASCORBIC ACID 500 MG TAB PO SCH (10:43)
[2024-02-15 11:40] LABS: Amphetamine Screen, Urine Neg (NEGATIVE)
[2024-02-15 11:41] LABS: Barbiturate Scree,Urine Neg (NEGATIVE); Benzodiazephine Screen, Urine Neg (NEGATIVE); Cannabinoid Screen, Urine Neg (NEGATIVE); Cocaine Screen, Urine Neg (NEGATIVE); Opiate Scree,Urine Neg (NEGATIVE); Phencyclidine Screen, Urine Neg (NEGATIVE)
[2024-02-15 13:50] LABS: Rapid Influenza A Negative (Negative)
[2024-02-15 14:07] LABS: Rapid Influenza B Positive (Negative)
[2024-02-15 14:10] LABS: Base Excess 3.1 mmol/L (-2.0-3.0)
[2024-02-15] MEDS: OSELTAMIVIR 75 MG CAP PO SCH (16:25)
[2024-02-15] MEDS: DOXYCYCLINE 100MG/250ML 250 ML IV SCH (16:25)
[2024-02-15] MEDS: MAGNESIUM SULFATE 1GM/100ML 100 ML IV SCH (16:59)
[2024-02-15] MEDS: TAMSULOSIN HYDROCHLORIDE 0.4 MG CAP PO SCH (17:56)
[2024-02-15 19:08] LABS: Base Excess 7.3 mmol/L (-2.0-3.0)
[2024-02-15] MEDS: ERGOCALCIFEROL 50,000 UNIT(1.25MG) CAP PO SCH (19:15)
[2024-02-15] MEDS: PANTOPRAZOLE 40 MG/10 ML VIAL INJ IV ONE (20:45)
[2024-02-15] MEDS ORDERED: TAMS-35 PO (23:35)
[2024-02-15] MEDS: levoFLOXacin 500MG 100 ML IV SCH (23:37)
[2024-02-16] VITALS (8 sets, daily range): BP systolic 115–128; BP diastolic 67–77; PULSE 82–120; RESP 15–20; TEMP 97.4–98; O2SAT 95–100
[2024-02-16 06:42] LABS: Basophils # (auto) 0 10 ^3/uL (0-0.2); Eosinophils # (auto) 0 10 ^3/uL (0-0.8); Hematocrit 33.4 % (41.0-53.0); Hemoglobin 11.2 g/dL (13.5-17.5); Lymphocytes # (auto) 0.3 10 ^3/uL (0.4-5.4); Lymphocytes % (auto) 2.6 % (10.0-50.0); Mean Corpuscular Hemoglobin 27.8 pg (28.0-32.0); Mean Corpuscular Hgb Conc. 33.6 g/dL (32.0-36.0); Mean Corpuscular Volume 82.8 fL (80.0-100.0); Monocytes # (auto) 0.5 10 ^3/uL (0-1.3); Monocytes % (auto) 4.4 % (0.0-12.0); Neutrophils # (auto) 9.8 10 ^3/uL (1.6-8.6); Platelet Count (auto) 241 10^3/uL (140-450); Red Blood Cells 4.04 10^6/uL (4.5-5.90); Red Cell Distribution Width 14.5 % (11.8-14.3); White Blood Cell 10.5 10^3/uL (4.4-10.8)
[2024-02-16 06:53] LABS: Calcium 9.2 mg/dL (8.7-10.4); Chloride 96 mmol/L (98-107); Potassium 4.7 mmol/L (3.5-5.1); Sodium 131 mmol/L (136-145)
[2024-02-16 06:54] LABS: Anion Gap 1 (5-15); Carbon Dioxide 34 mmol/L (20-30)
[2024-02-16 06:59] LABS: Glucose 172 mg/dL (74-106)
[2024-02-16 07:00] LABS: BUN/Creatinine Ratio 32.5 (10.0-20.0); Blood Urea Nitrogen 26 mg/dL (9-23)
[2024-02-16 08:44] LABS: Base Excess 6.7 mmol/L (-2.0-3.0)
[2024-02-16] MEDS: PANTOPRAZOLE 40 MG/10 ML VIAL INJ IV SCH (09:38)
[2024-02-17] VITALS (11 sets, daily range): BP systolic 108–117; BP diastolic 56–74; PULSE 90–160; RESP 17–22; TEMP 97.5–97.9; O2SAT 95–100
[2024-02-17] MEDS: ACETAMINOPHEN 325 MG TAB PO PRN (01:56)
[2024-02-17 05:34] LABS: Basophils # (auto) 0 10 ^3/uL (0-0.2); Eosinophils # (auto) 0 10 ^3/uL (0-0.8); Hematocrit 35.6 % (41.0-53.0); Hemoglobin 11.7 g/dL (13.5-17.5); Lymphocytes # (auto) 0.3 10 ^3/uL (0.4-5.4); Lymphocytes % (auto) 2.7 % (10.0-50.0); Mean Corpuscular Hemoglobin 27.2 pg (28.0-32.0); Mean Corpuscular Volume 82.4 fL (80.0-100.0); Monocytes # (auto) 0.4 10 ^3/uL (0-1.3); Monocytes % (auto) 3.7 % (0.0-12.0); Neutrophils # (auto) 10.4 10 ^3/uL (1.6-8.6); Neutrophils % (auto) 93.6 % (37.0-80.0); Nucleated Red Blood Cells % 0.1 %; Platelet Count (auto) 264 10^3/uL (140-450); Red Blood Cells 4.32 10^6/uL (4.5-5.90); Red Cell Distribution Width 14.1 % (11.8-14.3); White Blood Cell 11.2 10^3/uL (4.4-10.8)
[2024-02-17 05:48] LABS: Chloride 98 mmol/L (98-107); Potassium 5.1 mmol/L (3.5-5.1); Sodium 135 mmol/L (136-145)
[2024-02-17 05:49] LABS: Anion Gap 0 (5-15); Calcium 9.8 mg/dL (8.7-10.4); Carbon Dioxide 37 mmol/L (20-30)
[2024-02-17 05:54] LABS: BUN/Creatinine Ratio 43.2 (10.0-20.0); Blood Urea Nitrogen 32 mg/dL (9-23); Glucose 140 mg/dL (74-106)
[2024-02-17 08:36] LABS: Base Excess 8.9 mmol/L (-2.0-3.0)
[2024-02-17] MEDS: IOHEXOL 350 MG/ML 100ML IJ ONE (13:45)
[2024-02-18] VITALS (11 sets, daily range): BP systolic 102–113; BP diastolic 57–67; PULSE 82–105; RESP 17–22; TEMP 97.6–98.9; O2SAT 93–99
[2024-02-18 05:33] LABS: Basophils # (auto) 0 10 ^3/uL (0-0.2); Eosinophils # (auto) 0 10 ^3/uL (0-0.8); Hematocrit 34.6 % (41.0-53.0); Hemoglobin 11.4 g/dL (13.5-17.5); Lymphocytes # (auto) 0.3 10 ^3/uL (0.4-5.4); Mean Corpuscular Hemoglobin 27.4 pg (28.0-32.0); Mean Corpuscular Hgb Conc. 32.9 g/dL (32.0-36.0); Mean Corpuscular Volume 83.2 fL (80.0-100.0); Monocytes # (auto) 0.2 10 ^3/uL (0-1.3); Monocytes % (auto) 3.3 % (0.0-12.0); Neutrophils # (auto) 7.1 10 ^3/uL (1.6-8.6); Neutrophils % (auto) 92.7 % (37.0-80.0); Platelet Count (auto) 222 10^3/uL (140-450); Red Blood Cells 4.15 10^6/uL (4.5-5.90); Red Cell Distribution Width 14.4 % (11.8-14.3); White Blood Cell 7.6 10^3/uL (4.4-10.8)
[2024-02-18 05:49] LABS: Chloride 97 mmol/L (98-107); Potassium 4.8 mmol/L (3.5-5.1); Sodium 134 mmol/L (136-145)
[2024-02-18 05:50] LABS: Calcium 9.4 mg/dL (8.7-10.4); Carbon Dioxide 38 mmol/L (20-30)
[2024-02-18 05:55] LABS: BUN/Creatinine Ratio 42.2 (10.0-20.0); Blood Urea Nitrogen 35 mg/dL (9-23); Glucose 190 mg/dL (74-106)
[2024-02-18 05:57] LABS: Anion Gap 0 (5-15)
[2024-02-19] VITALS (8 sets, daily range): BP systolic 100–163; BP diastolic 59–97; PULSE 87–101; RESP 15–20; TEMP 97.6–98.2; O2SAT 90–99
[2024-02-19 06:19] LABS: Anion Gap 1 (5-15); Carbon Dioxide 38 mmol/L (20-30); Chloride 98 mmol/L (98-107); Potassium 4.9 mmol/L (3.5-5.1); Sodium 137 mmol/L (136-145)
[2024-02-19 06:25] LABS: BUN/Creatinine Ratio 42.7 (10.0-20.0); Blood Urea Nitrogen 35 mg/dL (9-23); Glucose 217 mg/dL (74-106)
[2024-02-19 06:26] LABS: Magnesium 1.9 mg/dL (1.6-2.6)
[2024-02-19 06:27] LABS: Basophils # (auto) 0 10 ^3/uL (0-0.2); Eosinophils # (auto) 0 10 ^3/uL (0-0.8); Hematocrit 33.2 % (41.0-53.0); Lymphocytes # (auto) 0.2 10 ^3/uL (0.4-5.4); Lymphocytes % (auto) 3.4 % (10.0-50.0); Mean Corpuscular Hemoglobin 27.3 pg (28.0-32.0); Mean Corpuscular Volume 82.6 fL (80.0-100.0); Monocytes # (auto) 0.2 10 ^3/uL (0-1.3); Neutrophils # (auto) 6.7 10 ^3/uL (1.6-8.6); Neutrophils % (auto) 93.6 % (37.0-80.0); Nucleated Red Blood Cells % 0.1 %; Phosphorus 2.6 mg/dL (2.4-5.1); Platelet Count (auto) 197 10^3/uL (140-450); Red Blood Cells 4.02 10^6/uL (4.5-5.90); Red Cell Distribution Width 14.4 % (11.8-14.3); White Blood Cell 7.2 10^3/uL (4.4-10.8)
[2024-02-19] MEDS: Ensure HIGH Protein Chocolate 8oz Bottle PO SCH (14:00)
[2024-02-19] MEDS: levoFLOXacin 500MG 100 ML IV SCH (21:38)
[2024-02-20] VITALS: BP 108/68; PULSE 95; RESP 20; TEMP 98.1; O2SAT 96
[2024-02-20 05:00] VITALS: BP 121/64; PULSE 95; RESP 20; TEMP 98; O2SAT 99
[2024-02-20 06:18] LABS: Basophils # (auto) 0 10 ^3/uL (0-0.2); Eosinophils # (auto) 0 10 ^3/uL (0-0.8); Eosinophils % (auto) 0.2 % (0.0-7.0); Hematocrit 33.3 % (41.0-53.0); Hemoglobin 11.1 g/dL (13.5-17.5); Lymphocytes # (auto) 0.6 10 ^3/uL (0.4-5.4); Lymphocytes % (auto) 7.9 % (10.0-50.0); Mean Corpuscular Hemoglobin 27.5 pg (28.0-32.0); Mean Corpuscular Hgb Conc. 33.2 g/dL (32.0-36.0); Mean Corpuscular Volume 82.8 fL (80.0-100.0); Monocytes % (auto) 11.9 % (0.0-12.0); Neutrophils # (auto) 6.5 10 ^3/uL (1.6-8.6); Platelet Count (auto) 170 10^3/uL (140-450); Red Blood Cells 4.02 10^6/uL (4.5-5.90); Red Cell Distribution Width 14.2 % (11.8-14.3); White Blood Cell 8.1 10^3/uL (4.4-10.8)
[2024-02-20 06:28] LABS: Chloride 98 mmol/L (98-107); Potassium 4.5 mmol/L (3.5-5.1); Sodium 139 mmol/L (136-145)
[2024-02-20 06:29] LABS: Calcium 8.9 mg/dL (8.7-10.4)
[2024-02-20 06:34] LABS: BUN/Creatinine Ratio 58.1 (10.0-20.0); Blood Urea Nitrogen 36 mg/dL (9-23); Glucose 101 mg/dL (74-106)
[2024-02-20 06:39] LABS: Anion Gap 0.99999 (5-15); Carbon Dioxide > 40 mmol/L (20-30)
[2024-02-20 08:00] VITALS: PULSE 73
[2024-02-20 09:10] VITALS: BP 123/63; PULSE 92; RESP 17; TEMP 97.9; O2SAT 99
[2024-02-20] MEDS: methylPREDNISolone SOD SUCC 40 MG/ML VL IV SCH (09:27)
[2024-02-20 12:09] VITALS: BP 98/63; PULSE 91; RESP 17; TEMP 98.4; O2SAT 97
[2024-02-20 12:32] VITALS: BP 123/63; TEMP 36.9
[2024-02-20] MEDS ORDERED: FURO20TA4 PO (13:59)
[2024-02-20] MEDS ORDERED: ASCO500T11 PO (13:59)
[2024-02-20] MEDS ORDERED: NUTR-559 PO (13:59)
[2024-02-20] MEDS ORDERED: ERGO1CAP23 PO (13:59)
== END 2024-02-20 14:00 | disposition home or self-care (01) | DRG 871 ==
LOC: EDSEX 18:32 → ER 18:32 → EDBD 18:32 → TELE 23:41 → TELE-EAST 02-15 23:04
PROVIDERS: ADMIT Internal Medicine Pulmonary Disease; ATTEND Anesthesiology
DX: A41.9 Sepsis, unspecified organism (principal); E43 Unspecified severe protein-calorie malnutrition; I21.A1 Myocardial infarction type 2; J96.21 Acute and chronic respiratory failure with hypoxia; J10.00 Influenza due to other identified influenza virus with unspecified type of pneumonia; J96.22 Acute and chronic respiratory failure with hypercapnia; R64 Cachexia; Z68.1 Body mass index [BMI] 19.9 or less, adult; J47.0 Bronchiectasis with acute lower respiratory infection; E87.3 Alkalosis; E87.1 Hypo-osmolality and hyponatremia; Z20.822 Contact with and (suspected) exposure to COVID-19; R79.89 Other specified abnormal findings of blood chemistry; N40.0 Benign prostatic hyperplasia without lower urinary tract symptoms; J10.1 Influenza due to other identified influenza virus with other respiratory manifestations; E55.9 Vitamin D deficiency, unspecified; M06.9 Rheumatoid arthritis, unspecified; J43.9 Emphysema, unspecified; Z88.5 Allergy status to narcotic agent; Z88.8 Allergy status to other drugs, medicaments and biological substances; Z91.041 Radiographic dye allergy status; Z79.899 Other long term (current) drug therapy; Z99.81 Dependence on supplemental oxygen; Z82.5 Family history of asthma and other chronic lower respiratory diseases; Z88.1 Allergy status to other antibiotic agents; Z82.0 Family history of epilepsy and other diseases of the nervous system; Z82.3 Family history of stroke
CPT/HCPCS: 36415; 36600; 71045; 71250; 71275; 80048; 80053; 80307; 81001; 82306; 82607; 82805; 83036; 83605; 83735; 83880; 83930; 83935; 84100; 84300; 84484; 85007; 85025; 85027; 85379; 85610; 85730; 87040; 87070; 87077; 87081; 87186; 87205; 87426; 87804; 93005; 93306; 93970; 94640; 97163; 99291; G0378; J1956; J2470; J3490

== ENCOUNTER 2024-03-10 12:49 | Inpatient (IN) | payer MEDICARE, MEDICAID ==
[2024-03-10] VITALS (7 sets, daily range): BP systolic 77–142; BP diastolic 22–62; PULSE 84–100; RESP 24–30; O2SAT 93–100
[~2024-03-10] VITALS: Ht 167.6 cm; Wt 54.6 kg
[~2024-03-10 12:49] MED LIST changes: -AMIT10TA12; +ASCO500T11 PO; +BUDE1AER16 IN; -CYCL-181; -DOXY-267 PO; +ERGO1CAP23 PO; +FLUT50SP31; +FURO20TA4 PO; -HYDR-1421; +IPR002IS NEB; +NUTR-559 PO; -PRED20TA2 PO; +TAMS-35 PO; +TIOT17SP IN
[2024-03-10] MEDS: ALBUTEROL SULF 2.5 MG/0.5ML(0.5%) NEB SOLN NEB ONE (13:30)
[2024-03-10] MEDS: methylPREDNISolone SOD SUCC 125 MG/2 ML VL IV ONE (13:45)
[2024-03-10] MEDS: FUROSEMIDE 20 MG/2 ML VIAL IV ONE (13:59)
[2024-03-10 14:13] LABS: Mean Corpuscular Hemoglobin 26.5 pg (28.0-32.0); Mean Corpuscular Hgb Conc. 31.6 g/dL (32.0-36.0); Mean Corpuscular Volume 83.8 fL (80.0-100.0); Platelet Count (auto) 292 10^3/uL (140-450); Red Blood Cells 4.54 10^6/uL (4.5-5.90); Red Cell Distribution Width 14.5 % (11.8-14.3); White Blood Cell 6.7 10^3/uL (4.4-10.8)
[2024-03-10 14:15] LABS: Basophils % (manual) 0 (0.0-2.0); Blast Cells 0; Eosinophils % (manual) 0 (0-7); Metamyelocytes % 0; Myelocytes % 0; Promyelocytes % 0; Reactive Lymphocytes 0
[2024-03-10 14:26] LABS: Albumin 3.7 g/dL (3.2-4.8); Alkaline Phosphatase 122 U/L (46-116); Anion Gap 6 (5-15); Aspartate Aminotransferase 10 U/L (13-40); BUN/Creatinine Ratio 31.9 (10.0-20.0); Bilirubin, Total 0.7 mg/dL (0.2-1.0); Blood Urea Nitrogen 23 mg/dL (9-23); Calcium 9.6 mg/dL (8.7-10.4); Carbon Dioxide 37 mmol/L (20-31); Chloride 97 mmol/L (98-107); Glucose 76 mg/dL (74-106); Potassium 4.8 mmol/L (3.5-5.1); Sodium 140 mmol/L (136-145); Total Protein 6.3 g/dL (5.7-8.2)
[2024-03-10 14:30] LABS: Alanine Aminotransferase 9 U/L (7-40)
[2024-03-10 14:41] LABS: Band Neutrophils % (manual) 7; Lymphocytes % (manual) 19 (10.0-50.0); Monocytes % (manual) 18 (0-12)
[2024-03-10 14:42] LABS: Platelet Estimate Adequate; Stomatocytes Few
[2024-03-10 15:15] LABS: Base Excess 4.7 mmol/L (-2.0-3.0)
[2024-03-10] MEDS: LABETALOL HCL 20 MG/4 ML VL IV ONE (15:15)
[2024-03-10 17:28] LABS: Urine Bacteria None Seen /hpf (None Seen)
[2024-03-10 18:12] LABS: Urine Blood Negative /uL (Negative); Urine Clarity Clear (Clear); Urine Color Light-Yellow (Yellow); Urine Mucus FEW (None Seen); Urine Protein, UAD TRACE (Negative); Urine Specific Gravity 1.011 (1.001-1.035); Urine Urobilinogen Normal (Negative); Urine WBC <1 /hpf (0 - 3)
[2024-03-10] MEDS: MIDAZOLAM DRIP 50 mg/50mL 50 ML IV SCH ×2 (18:19→19:15)
[2024-03-10] MEDS: ETOMIDATE (2MG/ML) 20ML VIAL IV ONE ×3 (18:20→19:13)
[2024-03-10] MEDS: ROCURONIUM 10MG/ML 10ML VIAL IV ONE ×2 (18:20→19:09)
[2024-03-10] MEDS: NOREPINEPHRINE 8 MG/250ML KIT 250 ML IV ONE (19:22)
[2024-03-10] MEDS: PROPOFOL 100 ML IV SCH (20:21)
[2024-03-10] MEDS: NOREPINEPHRINE 8 MG/250ML KIT 250 ML IV SCH (20:30)
[2024-03-10 20:47] LABS: Base Excess 5.8 mmol/L (-2.0-3.0)
[2024-03-10] MEDS ORDERED: MORPHINE SULFATE INJ 2 MG/ml SYRG IV PRN (21:00)
[2024-03-10] MEDS ORDERED: ONDANSETRON HCL 4 MG/2 ML VIAL IV PRN (21:00)
[2024-03-10] MEDS ORDERED: NITROGLYCERIN 0.4 MG SL TAB SL PRN (21:00)
[2024-03-10 23:42] LABS: Base Excess 3.7 mmol/L (-2.0-3.0)
[2024-03-11] VITALS (51 sets, daily range): BP systolic 107–129; BP diastolic 53–72; PULSE 87–106; RESP 16–31; TEMP 98.2; O2SAT 50–98
[2024-03-11 01:46] LABS: COVID19 ANTIGEN SOFIA FIA POSITIVE (NEGATIVE)
[2024-03-11 01:47] LABS: Rapid Influenza A Positive (Negative); Rapid Influenza B Positive (Negative)
[2024-03-11] MEDS ORDERED: REMDESIVIR PER PHARMACY 0 ML IV SCH (02:30)
[2024-03-11] MEDS: levoFLOXacin 500MG 100 ML IV SCH (03:09)
[2024-03-11 03:24] LABS: Basophils # (auto) 0 10 ^3/uL (0-0.2); Eosinophils # (auto) 0 10 ^3/uL (0-0.8); Lymphocytes # (auto) 0.3 10 ^3/uL (0.4-5.4); Monocytes # (auto) 0.4 10 ^3/uL (0-1.3); Monocytes % (auto) 6.2 % (0.0-12.0); Nucleated Red Blood Cells % 0.1 %; Red Cell Distribution Width 14.2 % (11.8-14.3)
[2024-03-11 03:25] LABS: Hematocrit 37.6 % (41.0-53.0); Hemoglobin 12.2 g/dL (13.5-17.5); Lymphocytes % (auto) 5.4 % (10.0-50.0); Mean Corpuscular Hemoglobin 27.1 pg (28.0-32.0); Mean Corpuscular Hgb Conc. 32.5 g/dL (32.0-36.0); Mean Corpuscular Volume 83.6 fL (80.0-100.0); Neutrophils % (auto) 88.4 % (37.0-80.0); Platelet Count (auto) 267 10^3/uL (140-450); White Blood Cell 5.7 10^3/uL (4.4-10.8)
[2024-03-11 03:40] LABS: Thyroid Stimulating Hormone 0.88 uIU/mL (0.55-4.78)
[2024-03-11 03:42] LABS: Magnesium 1.8 mg/dL (1.6-2.6)
[2024-03-11 03:51] LABS: CRP High Sensitivity 16.62 mg/dL (<1.0)
[2024-03-11] MEDS: IPRATROPIUM BROM 0.5 MG/2.5ML INH SOL NEB PRN (03:51)
[2024-03-11] MEDS: ALBUTEROL SULF 2.5 MG/0.5ML(0.5%) NEB SOLN NEB PRN (03:52)
[2024-03-11 06:07] LABS: Base Excess 2.2 mmol/L (-2.0-3.0)
[2024-03-11 07:36] LABS: Albumin 3.7 g/dL (3.2-4.8); Alkaline Phosphatase 107 U/L (46-116); Anion Gap 8 (5-15); Aspartate Aminotransferase 10 U/L (13-40); BUN/Creatinine Ratio 30.2 (10.0-20.0); Blood Urea Nitrogen 32 mg/dL (9-23); Calcium 9.3 mg/dL (8.7-10.4); Carbon Dioxide 35 mmol/L (20-31); Chloride 96 mmol/L (98-107); Glucose 169 mg/dL (74-106); Potassium 5.1 mmol/L (3.5-5.1); Sodium 139 mmol/L (136-145)
[2024-03-11 07:37] LABS: Bilirubin, Total 0.4 mg/dL (0.2-1.0); Total Protein 6.6 g/dL (5.7-8.2)
[2024-03-11 07:39] LABS: Alanine Aminotransferase < 9 U/L (7-40)
[2024-03-11] MEDS: REMDESIVIR 200 MG in NS 210ml LOADING DOSE ADULT IV ONE (09:06)
[2024-03-11] MEDS: ENOXAPARIN SOD 40 MG/0.4 ML SYRINGE SC SCH (10:20)
[2024-03-11] MEDS: FUROSEMIDE 20 MG/2 ML VIAL IV SCH (10:20)
[2024-03-11] MEDS: BUDESONIDE (INHALATION) 0.5 MG/2 ML NEB NEB SCH (18:56)
[2024-03-11 19:26] LABS: Base Excess 8.2 mmol/L (-2.0-3.0)
[2024-03-11] MEDS: ASCORBIC ACID 500 MG TAB PO SCH (21:44)
[2024-03-12] VITALS (104 sets, daily range): BP systolic 88–135; BP diastolic 48–75; PULSE 84–108; RESP 19–28; TEMP 97.2–99; O2SAT 40–99
[2024-03-12 03:20] LABS: Albumin 3.4 g/dL (3.2-4.8); Alkaline Phosphatase 92 U/L (46-116); Anion Gap 4 (5-15); Aspartate Aminotransferase 20 U/L (13-40); BUN/Creatinine Ratio 37.1 (10.0-20.0); Calcium 9.2 mg/dL (8.7-10.4); Carbon Dioxide 37 mmol/L (20-31); Chloride 98 mmol/L (98-107); Glucose 162 mg/dL (74-106); Potassium 4.1 mmol/L (3.5-5.1); Sodium 139 mmol/L (136-145)
[2024-03-12 03:21] LABS: Bilirubin, Total 0.3 mg/dL (0.2-1.0); Total Protein 6.2 g/dL (5.7-8.2)
[2024-03-12 03:29] LABS: Alanine Aminotransferase < 9 U/L (7-40); Blood Urea Nitrogen 43 mg/dL (9-23)
[2024-03-12 04:38] LABS: Basophils # (auto) 0 10 ^3/uL (0-0.2); Eosinophils # (auto) 0 10 ^3/uL (0-0.8); Hematocrit 32.1 % (41.0-53.0); Hemoglobin 10.6 g/dL (13.5-17.5); Lymphocytes # (auto) 0.2 10 ^3/uL (0.4-5.4); Lymphocytes % (auto) 3.8 % (10.0-50.0); Mean Corpuscular Hemoglobin 27.2 pg (28.0-32.0); Mean Corpuscular Volume 82.3 fL (80.0-100.0); Monocytes # (auto) 0.9 10 ^3/uL (0-1.3); Monocytes % (auto) 15.8 % (0.0-12.0); Neutrophils # (auto) 4.6 10 ^3/uL (1.6-8.6); Neutrophils % (auto) 80.4 % (37.0-80.0); Platelet Count (auto) 220 10^3/uL (140-450); Red Cell Distribution Width 14.3 % (11.8-14.3); White Blood Cell 5.7 10^3/uL (4.4-10.8)
[2024-03-12 06:19] LABS: Base Excess 13.1 mmol/L (-2.0-3.0)
[2024-03-12] MEDS: PANTOPRAZOLE 40 MG/10 ML VIAL INJ IV SCH (10:50)
[2024-03-12] MEDS: DexAMETHasone SOD PHOS 10MG/1ML VIAL INJ IV SCH (10:50)
[2024-03-12] MEDS: CHOLECALCIFEROL (VITD3) 1,000UNIT=25mCg TAB PO SCH (10:52)
[2024-03-12] MEDS: ZINC SULFATE 220mg CAP or TAB PO SCH (10:52)
[2024-03-12] MEDS: REMDESIVIR 100mg 100 MG in SODIUM CHL 0.9% 230 ML IV SCH (14:59)
[2024-03-13] VITALS (110 sets, daily range): BP systolic 91–158; BP diastolic 47–79; PULSE 63–141; RESP 14–27; TEMP 97.5–98.2; O2SAT 92–100
[2024-03-13 05:59] LABS: Hematocrit 30.9 % (41.0-53.0); Hemoglobin 10.4 g/dL (13.5-17.5)
[2024-03-13 06:19] LABS: Alanine Aminotransferase 12 U/L (7-40); Albumin 3.3 g/dL (3.2-4.8); Alkaline Phosphatase 85 U/L (46-116); Anion Gap 4 (5-15); Aspartate Aminotransferase 26 U/L (13-40); BUN/Creatinine Ratio 44.8 (10.0-20.0); Bilirubin, Total 0.3 mg/dL (0.2-1.0); Blood Urea Nitrogen 52 mg/dL (9-23); Calcium 8.9 mg/dL (8.7-10.4); Carbon Dioxide 38 mmol/L (20-31); Chloride 99 mmol/L (98-107); Glucose 168 mg/dL (74-106); Potassium 4.5 mmol/L (3.5-5.1); Sodium 141 mmol/L (136-145); Total Protein 5.9 g/dL (5.7-8.2)
[2024-03-13 06:39] LABS: Base Excess 6.6 mmol/L (-2.0-3.0)
[2024-03-13] MEDS ORDERED: LEVA1AER IN (10:19)
[2024-03-13] MEDS: levoFLOXacin 250MG 50 ML IV SCH (10:21)
[2024-03-14] VITALS (101 sets, daily range): BP systolic 101–178; BP diastolic 43–116; PULSE 60–121; RESP 16–38; TEMP 98.2–100.2; O2SAT 77–100
[2024-03-14 04:18] LABS: Alanine Aminotransferase 13 U/L (7-40); Albumin 3.2 g/dL (3.2-4.8); Alkaline Phosphatase 82 U/L (46-116); Anion Gap 6 (5-15); Aspartate Aminotransferase 22 U/L (13-40); BUN/Creatinine Ratio 40.6 (10.0-20.0); Bilirubin, Total 0.2 mg/dL (0.2-1.0); Calcium 9.1 mg/dL (8.7-10.4); Carbon Dioxide 36 mmol/L (20-31); Chloride 99 mmol/L (98-107); Glucose 164 mg/dL (74-106); Potassium 4.5 mmol/L (3.5-5.1); Sodium 141 mmol/L (136-145); Total Protein 5.9 g/dL (5.7-8.2)
[2024-03-14 04:24] LABS: Blood Urea Nitrogen 39 mg/dL (9-23)
[2024-03-14] MEDS: ACETAMINOPHEN 325 MG TAB PO PRN (07:51)
[2024-03-14 08:50] LABS: Base Excess 13.5 mmol/L (-2.0-3.0)
[2024-03-14] MEDS: ENSURE CLEAR Mixed Berry 8oz Carton PO SCH (12:00)
[2024-03-15] VITALS (101 sets, daily range): BP systolic 90–186; BP diastolic 16–70; PULSE 84–148; RESP 18–27; TEMP 96.1–98.2; O2SAT 62–100
[2024-03-15] MEDS: MORPHINE SULFATE INJ 2 MG/ml SYRG IV PRN (02:15)
[2024-03-15] MEDS: hydrALAZINE HCL 20 MG/ML VL IV PRN (02:32)
[2024-03-15] MEDS: STERILE WATER 10 ML ONE (02:38)
[2024-03-15] MEDS: CATHFLO ACTIVASE (ALTEPLASE) 2 MG VIAL IV ONE (03:37)
[2024-03-15 04:15] LABS: Mean Corpuscular Hemoglobin 26.6 pg (28.0-32.0)
[2024-03-15 04:22] LABS: Hematocrit 39.6 % (41.0-53.0); Hemoglobin 12.7 g/dL (13.5-17.5); Platelet Count (auto) 365 10^3/uL (140-450); Red Blood Cells 4.77 10^6/uL (4.5-5.90); Red Cell Distribution Width 15.4 % (11.8-14.3)
[2024-03-15 04:34] LABS: White Blood Cell 34.4 10^3/uL (4.4-10.8)
[2024-03-15 04:35] LABS: Band Neutrophils % (manual) 0; Basophils % (manual) 0 (0.0-2.0); Blast Cells 0; Eosinophils % (manual) 0 (0-7); Metamyelocytes % 0; Myelocytes % 0; Promyelocytes % 0; Reactive Lymphocytes 0
[2024-03-15 04:55] LABS: Alanine Aminotransferase 19 U/L (7-40); Albumin 3.5 g/dL (3.2-4.8); Alkaline Phosphatase 107 U/L (46-116); Anion Gap 9 (5-15); Aspartate Aminotransferase 23 U/L (13-40); Calcium 9.2 mg/dL (8.7-10.4); Carbon Dioxide 38 mmol/L (20-31); Chloride 99 mmol/L (98-107); Glucose 97 mg/dL (74-106); Potassium 4.5 mmol/L (3.5-5.1)
[2024-03-15 04:56] LABS: Bilirubin, Total 0.5 mg/dL (0.2-1.0); Total Protein 6.2 g/dL (5.7-8.2)
[2024-03-15 05:17] LABS: Lymphocytes % (manual) 2 (10.0-50.0); Monocytes % (manual) 11 (0-12); Platelet Estimate Adequate
[2024-03-15 05:19] LABS: Blood Urea Nitrogen 51 mg/dL (9-23); Sodium 146 mmol/L (136-145)
[2024-03-15] MEDS: KETOROLAC TROMETH 30 MG/ML 1ML VIAL IV ONE (06:19)
[2024-03-15 06:43] LABS: Base Excess 8.7 mmol/L (-2.0-3.0)
[2024-03-15 08:06] LABS: Base Excess 9.4 mmol/L (-2.0-3.0)
[2024-03-15] MEDS: dilTIAZem 25 MG/5 ML VIAL IV PRN (15:17)
[2024-03-15] MEDS: ROCURONIUM 10MG/ML 10ML VIAL IV ONE (15:40)
[2024-03-15] MEDS: PROPOFOL 100 ML IV SCH (15:45)
[2024-03-15] MEDS: fentaNYL Drip 2500mCg/250mlNS 250 ML IV SCH (15:45)
[2024-03-15 16:05] LABS: Base Excess 7.2 mmol/L (-2.0-3.0)
[2024-03-15] MEDS: ETOMIDATE (2MG/ML) 20ML VIAL IV ONE (16:33)
[2024-03-15] MEDS: SUCCINYLCHOLINE CHLORIDE 20 MG/ML 10ML VIAL IV ONE (16:34)
[2024-03-15 18:15] LABS: Base Excess 7.4 mmol/L (-2.0-3.0)
[2024-03-15 20:38] LABS: Chloride 100 mmol/L (98-107); Potassium 4.8 mmol/L (3.5-5.1); Sodium 146 mmol/L (136-145)
[2024-03-15 20:39] LABS: Anion Gap 10 (5-15); Carbon Dioxide 36 mmol/L (20-31)
[2024-03-15 20:40] LABS: Calcium 8.7 mg/dL (8.7-10.4)
[2024-03-15 20:41] LABS: Eosinophils # (auto) 0 10 ^3/uL (0-0.8); Hemoglobin 11.6 g/dL (13.5-17.5); Lymphocytes # (auto) 0.5 10 ^3/uL (0.4-5.4); Red Cell Distribution Width 15.3 % (11.8-14.3)
[2024-03-15 20:43] LABS: Basophils # (auto) 0.1 10 ^3/uL (0-0.2); Basophils % (auto) 0.2 % (0.0-2.0); Hematocrit 36.9 % (41.0-53.0); Lymphocytes % (auto) 1.4 % (10.0-50.0); Mean Corpuscular Hemoglobin 26.1 pg (28.0-32.0); Mean Corpuscular Hgb Conc. 31.6 g/dL (32.0-36.0); Mean Corpuscular Volume 82.7 fL (80.0-100.0); Monocytes # (auto) 2.8 10 ^3/uL (0-1.3); Monocytes % (auto) 7.9 % (0.0-12.0); Neutrophils # (auto) 32.2 10 ^3/uL (1.6-8.6); Neutrophils % (auto) 90.5 % (37.0-80.0); Platelet Count (auto) 315 10^3/uL (140-450); Red Blood Cells 4.46 10^6/uL (4.5-5.90)
[2024-03-15 20:44] LABS: Glucose 122 mg/dL (74-106)
[2024-03-15 20:45] LABS: BUN/Creatinine Ratio 46.1 (10.0-20.0); Magnesium 2.3 mg/dL (1.6-2.6)
[2024-03-15 20:57] LABS: Blood Urea Nitrogen 70 mg/dL (9-23)
[2024-03-15 21:02] LABS: White Blood Cell 35.6 10^3/uL (4.4-10.8)
[2024-03-16] VITALS (118 sets, daily range): BP systolic 88–140; BP diastolic 21–63; PULSE 75–147; RESP 19–21; TEMP 97.2–100.5; O2SAT 84–100
[2024-03-16 03:47] LABS: Basophils # (auto) 0 10 ^3/uL (0-0.2); Eosinophils # (auto) 0 10 ^3/uL (0-0.8); Hematocrit 36.3 % (41.0-53.0); Hemoglobin 11.7 g/dL (13.5-17.5)
[2024-03-16 03:52] LABS: Basophils % (auto) 0.1 % (0.0-2.0); Lymphocytes # (auto) 0.4 10 ^3/uL (0.4-5.4); Lymphocytes % (auto) 1.3 % (10.0-50.0); Mean Corpuscular Hemoglobin 26.7 pg (28.0-32.0); Mean Corpuscular Hgb Conc. 32.1 g/dL (32.0-36.0); Mean Corpuscular Volume 83.2 fL (80.0-100.0); Monocytes # (auto) 1.8 10 ^3/uL (0-1.3); Monocytes % (auto) 6.5 % (0.0-12.0); Neutrophils # (auto) 24.8 10 ^3/uL (1.6-8.6); Neutrophils % (auto) 92.1 % (37.0-80.0); Platelet Count (auto) 252 10^3/uL (140-450); Red Blood Cells 4.37 10^6/uL (4.5-5.90); Red Cell Distribution Width 15.2 % (11.8-14.3); White Blood Cell 26.9 10^3/uL (4.4-10.8)
[2024-03-16 03:59] LABS: Anion Gap 10 (5-15); Carbon Dioxide 35 mmol/L (20-31); Chloride 101 mmol/L (98-107); Potassium 4.7 mmol/L (3.5-5.1); Sodium 146 mmol/L (136-145)
[2024-03-16 04:00] LABS: Calcium 9.1 mg/dL (8.7-10.4)
[2024-03-16] MEDS: dilTIAZem 25 MG/5 ML VIAL IV PRN (04:04)
[2024-03-16 04:05] LABS: BUN/Creatinine Ratio 44.3 (10.0-20.0); Blood Urea Nitrogen 70 mg/dL (9-23); Glucose 120 mg/dL (74-106)
[2024-03-16 07:45] LABS: Base Excess 6.4 mmol/L (-2.0-3.0)
[2024-03-16] MEDS: METOPROLOL TARTRATE 1MG/1ML-5ML VIAL IV ONE (16:31)
[2024-03-16] MEDS: Jevity 1.2 Cal/Fiber 1 Liter GT SCH (23:53)
[2024-03-17] VITALS (113 sets, daily range): BP systolic 84–162; BP diastolic 27–71; PULSE 61–138; RESP 20; TEMP 97.5–99.1; O2SAT 88–100
[2024-03-17 04:24] LABS: Basophils # (auto) 0 10 ^3/uL (0-0.2); Basophils % (auto) 0.1 % (0.0-2.0); Eosinophils # (auto) 0 10 ^3/uL (0-0.8); Hemoglobin 11.6 g/dL (13.5-17.5); Lymphocytes # (auto) 0.3 10 ^3/uL (0.4-5.4); Lymphocytes % (auto) 1.1 % (10.0-50.0); Monocytes # (auto) 1.3 10 ^3/uL (0-1.3); White Blood Cell 23.8 10^3/uL (4.4-10.8)
[2024-03-17 04:27] LABS: Calcium 8.9 mg/dL (8.7-10.4); Chloride 103 mmol/L (98-107); Potassium 4.7 mmol/L (3.5-5.1); Sodium 146 mmol/L (136-145)
[2024-03-17 04:28] LABS: Anion Gap 9 (5-15); Carbon Dioxide 34 mmol/L (20-31); Hematocrit 35.8 % (41.0-53.0); Mean Corpuscular Hemoglobin 26.4 pg (28.0-32.0); Mean Corpuscular Hgb Conc. 32.4 g/dL (32.0-36.0); Mean Corpuscular Volume 81.5 fL (80.0-100.0); Monocytes % (auto) 5.3 % (0.0-12.0); Neutrophils # (auto) 22.2 10 ^3/uL (1.6-8.6); Neutrophils % (auto) 93.5 % (37.0-80.0); Platelet Count (auto) 264 10^3/uL (140-450); Red Blood Cells 4.39 10^6/uL (4.5-5.90)
[2024-03-17 04:33] LABS: BUN/Creatinine Ratio 51.4 (10.0-20.0); Glucose 217 mg/dL (74-106)
[2024-03-17 05:09] LABS: Blood Urea Nitrogen 94 mg/dL (9-23)
[2024-03-17 08:20] LABS: Base Excess 8.6 mmol/L (-2.0-3.0)
[2024-03-17] MEDS: SOD CHL 0.45% 1,000 ML IV SCH (10:50)
[2024-03-17 11:39] LABS: Magnesium 2.6 mg/dL (1.6-2.6)
[2024-03-17 11:41] LABS: Phosphorus 4.2 mg/dL (2.4-5.1)
[2024-03-17 12:34] LABS: Urine WBC None Seen /hpf (0 - 3)
[2024-03-17 12:45] LABS: Urine Bacteria FEW /hpf (None Seen); Urine Blood Negative /uL (Negative); Urine Color Light-Yellow (Yellow); Urine Hyaline Cast FEW /lpf (0 - 2); Urine Protein, UAD TRACE (Negative); Urine Specific Gravity 1.022 (1.001-1.035); Urine Urobilinogen Normal (Negative); Urine pH 5.5 (5.0-9.0)
[2024-03-17 12:46] LABS: Urine Clarity Hazy (Clear)
[2024-03-17 13:01] LABS: Creatinine, Urine 53.26 mg/dL (30.0-125.0)
[2024-03-17 13:31] LABS: Urine Protein/Creatinine Ratio 0.54
[2024-03-18] VITALS (104 sets, daily range): BP systolic 71–166; BP diastolic 35–106; PULSE 60–116; RESP 19–28; TEMP 97.3–98.9; O2SAT 92–100
[2024-03-18 03:54] LABS: Basophils # (auto) 0 10 ^3/uL (0-0.2); Eosinophils # (auto) 0 10 ^3/uL (0-0.8); Hemoglobin 10.3 g/dL (13.5-17.5); Lymphocytes # (auto) 0.2 10 ^3/uL (0.4-5.4); Lymphocytes % (auto) 1.3 % (10.0-50.0); Neutrophils # (auto) 15.1 10 ^3/uL (1.6-8.6); Red Cell Distribution Width 15.2 % (11.8-14.3)
[2024-03-18 03:58] LABS: Hematocrit 31.8 % (41.0-53.0); Mean Corpuscular Hemoglobin 26.6 pg (28.0-32.0); Mean Corpuscular Hgb Conc. 32.3 g/dL (32.0-36.0); Mean Corpuscular Volume 82.5 fL (80.0-100.0); Monocytes # (auto) 0.9 10 ^3/uL (0-1.3); Monocytes % (auto) 5.4 % (0.0-12.0); Neutrophils % (auto) 93.3 % (37.0-80.0); Platelet Count (auto) 139 10^3/uL (140-450); Red Blood Cells 3.85 10^6/uL (4.5-5.90); White Blood Cell 16.2 10^3/uL (4.4-10.8)
[2024-03-18 04:10] LABS: Calcium 8.5 mg/dL (8.7-10.4); Chloride 106 mmol/L (98-107); Potassium 4.6 mmol/L (3.5-5.1); Sodium 145 mmol/L (136-145)
[2024-03-18 04:11] LABS: Anion Gap 6 (5-15); Carbon Dioxide 33 mmol/L (20-31)
[2024-03-18 04:16] LABS: BUN/Creatinine Ratio 60.3 (10.0-20.0); Glucose 239 mg/dL (74-106)
[2024-03-18 04:45] LABS: Blood Urea Nitrogen 76 mg/dL (9-23)
[2024-03-18 06:57] LABS: Base Excess 7.2 mmol/L (-2.0-3.0)
[2024-03-18] MEDS: methylPREDNISolone SOD SUCC 40 MG/ML VL IV SCH (11:01)
[2024-03-18] MEDS: METOCLOPRAMIDE 10 mg/10ml ORAL soln GT PRN (11:33)
[2024-03-18] MEDS: CATHFLO ACTIVASE (ALTEPLASE) 2 MG VIAL IV ONE (11:45)
[2024-03-18] MEDS: LACTULOSE 20Gm/30ML SOLN PO SCH (13:49)
[2024-03-18] MEDS: PIPERACILLIN-TAZOB 3.375GM 100 ML IV SCH (13:49)
[2024-03-19] VITALS (103 sets, daily range): BP systolic 84–152; BP diastolic 21–70; PULSE 61–118; RESP 19–25; TEMP 97.5–99.1; O2SAT 88–100
[2024-03-19 04:43] LABS: Basophils # (auto) 0 10 ^3/uL (0-0.2); Eosinophils # (auto) 0 10 ^3/uL (0-0.8); Hematocrit 36.7 % (41.0-53.0); Lymphocytes # (auto) 0.2 10 ^3/uL (0.4-5.4); Lymphocytes % (auto) 1.4 % (10.0-50.0); Red Cell Distribution Width 15.5 % (11.8-14.3)
[2024-03-19 04:47] LABS: Basophils % (auto) 0.1 % (0.0-2.0); Hemoglobin 11.6 g/dL (13.5-17.5); Mean Corpuscular Hemoglobin 26.4 pg (28.0-32.0); Mean Corpuscular Hgb Conc. 31.5 g/dL (32.0-36.0); Mean Corpuscular Volume 83.7 fL (80.0-100.0); Monocytes # (auto) 0.7 10 ^3/uL (0-1.3); Monocytes % (auto) 4.4 % (0.0-12.0); Neutrophils # (auto) 15.8 10 ^3/uL (1.6-8.6); Neutrophils % (auto) 94.1 % (37.0-80.0); Platelet Count (auto) 122 10^3/uL (140-450); Red Blood Cells 4.38 10^6/uL (4.5-5.90); White Blood Cell 16.8 10^3/uL (4.4-10.8)
[2024-03-19 04:50] LABS: Chloride 107 mmol/L (98-107); Potassium 4.4 mmol/L (3.5-5.1); Sodium 143 mmol/L (136-145)
[2024-03-19 04:51] LABS: Anion Gap 8 (5-15); Carbon Dioxide 28 mmol/L (20-31)
[2024-03-19 04:52] LABS: Calcium 8.7 mg/dL (8.7-10.4)
[2024-03-19 04:56] LABS: BUN/Creatinine Ratio 42.5 (10.0-20.0); Glucose 288 mg/dL (74-106)
[2024-03-19 05:03] LABS: Blood Urea Nitrogen 45 mg/dL (9-23)
[2024-03-19 07:42] LABS: Base Excess 3.4 mmol/L (-2.0-3.0)
[2024-03-19] MEDS: BISACODYL 10 MG RECT SUPP PR ONE (10:28)
[2024-03-20] VITALS (105 sets, daily range): BP systolic 82–156; BP diastolic 18–83; PULSE 89–175; RESP 17–22; TEMP 97.8–99.1; O2SAT 74–100
[2024-03-20 04:13] LABS: Chloride 106 mmol/L (98-107); Potassium 5.1 mmol/L (3.5-5.1); Sodium 143 mmol/L (136-145)
[2024-03-20 04:14] LABS: Anion Gap 6 (5-15); Calcium 8.9 mg/dL (8.7-10.4); Carbon Dioxide 31 mmol/L (20-31)
[2024-03-20 04:19] LABS: BUN/Creatinine Ratio 48.7 (10.0-20.0); Glucose 266 mg/dL (74-106)
[2024-03-20 04:25] LABS: Blood Urea Nitrogen 55 mg/dL (9-23)
[2024-03-20 05:12] LABS: Hemoglobin 12.4 g/dL (13.5-17.5)
[2024-03-20 05:17] LABS: Hematocrit 39.6 % (41.0-53.0); Mean Corpuscular Hemoglobin 26.2 pg (28.0-32.0); Mean Corpuscular Hgb Conc. 31.4 g/dL (32.0-36.0); Mean Corpuscular Volume 83.4 fL (80.0-100.0); Platelet Count (auto) 133 10^3/uL (140-450); Red Blood Cells 4.75 10^6/uL (4.5-5.90); Red Cell Distribution Width 15.4 % (11.8-14.3)
[2024-03-20 05:20] LABS: White Blood Cell 61.2 10^3/uL (4.4-10.8)
[2024-03-20 05:21] LABS: Basophils % (manual) 0 (0.0-2.0); Blast Cells 0; Eosinophils % (manual) 0 (0-7); Metamyelocytes % 0; Myelocytes % 0; Promyelocytes % 0; Reactive Lymphocytes 0
[2024-03-20 06:41] LABS: Band Neutrophils % (manual) 4; Lymphocytes % (manual) 3 (10.0-50.0); Monocytes % (manual) 2 (0-12); Platelet Estimate Decreased
[2024-03-20 06:42] LABS: Large Platelets FEW
[2024-03-20 08:04] LABS: Lactic Acid w/Reflex 3.1 mmol/L (0.4-2.0)
[2024-03-20] MEDS ORDERED: IPRATROPIUM BROM 0.5 MG/2.5ML INH SOL NEB PRN (10:00)
[2024-03-20] MEDS ORDERED: D5W 5% IV SCH (10:00)
[2024-03-20] MEDS ORDERED: TIGECYCLINE IV SCH (10:00)
[2024-03-20] MEDS ORDERED: ALBUTEROL SULF 2.5 MG/0.5ML(0.5%) NEB SOLN HHN PRN (10:15)
[2024-03-20] MEDS: ACETYLCYSTEINE 10 %(100MG/ML) SOL 4ML NEB SCH (14:00)
[2024-03-20] MEDS: ALBUTEROL SULF 2.5 MG/0.5ML(0.5%) NEB SOLN NEB PRN (14:32)
[2024-03-20] MEDS: IPRATROPIUM BROM 0.5 MG/2.5ML INH SOL NEB PRN (14:32)
[2024-03-20] MEDS: AMIODARONE BOLUS KIT 100 ML IV ONE ×2 (14:37→15:43)
[2024-03-20] MEDS: AMIODARONE 450mg/250ml AE 250 ML IV ONE (15:03)
[2024-03-20] MEDS: AMIODARONE 450mg/250ml AE 250 ML IV SCH ×2 (15:43→21:13)
[2024-03-20 16:06] LABS: INR 1.25 (0.9-1.15); Partial Thromboplastin Time 33.2 SEC (24.5-34.5)
[2024-03-20] MEDS: MEROPENEM VABORBACTAM IV SCH (16:10)
[2024-03-20] MEDS: SODIUM CHL 0.9% IV SCH (16:10)
[2024-03-20] MEDS: SODIUM CHLORIDE 0.9% 1,000 ML IV SCH (21:14)
[2024-03-20] MEDS: TOBRAMYCIN 300 MG/5 ML NEB SOLN NEB SCH (22:00)
[2024-03-21] VITALS (103 sets, daily range): BP systolic 86–173; BP diastolic 18–61; PULSE 61–100; RESP 18–44; TEMP 96.1–98.2; O2SAT 91–100
[2024-03-21 04:04] LABS: Hemoglobin 11.1 g/dL (13.5-17.5)
[2024-03-21 04:11] LABS: Hematocrit 35.4 % (41.0-53.0); Mean Corpuscular Hgb Conc. 31.2 g/dL (32.0-36.0); Mean Corpuscular Volume 83.3 fL (80.0-100.0); Platelet Count (auto) 79 10^3/uL (140-450); Red Blood Cells 4.25 10^6/uL (4.5-5.90); Red Cell Distribution Width 15.8 % (11.8-14.3)
[2024-03-21 04:19] LABS: Anion Gap 5 (5-15); Carbon Dioxide 28 mmol/L (20-31); Chloride 109 mmol/L (98-107); Sodium 142 mmol/L (136-145)
[2024-03-21 04:20] LABS: Calcium 8.3 mg/dL (8.7-10.4)
[2024-03-21 04:25] LABS: BUN/Creatinine Ratio 49.3 (10.0-20.0); Glucose 290 mg/dL (74-106)
[2024-03-21 04:45] LABS: Blood Urea Nitrogen 74 mg/dL (9-23); Potassium 5.6 mmol/L (3.5-5.1); White Blood Cell 47.9 10^3/uL (4.4-10.8)
[2024-03-21 04:46] LABS: Basophils % (manual) 0 (0.0-2.0); Blast Cells 0; Eosinophils % (manual) 0 (0-7); Metamyelocytes % 0; Myelocytes % 0; Promyelocytes % 0; Reactive Lymphocytes 0
[2024-03-21] MEDS: SODIUM ZIRCONIUM CYCL 10 GM PAK PO ONE ×2 (06:45→18:28)
[2024-03-21 06:49] LABS: Band Neutrophils % (manual) 3; Lymphocytes % (manual) 2 (10.0-50.0); Monocytes % (manual) 3 (0-12); Platelet Estimate Decreased
[2024-03-21] MEDS: FUROSEMIDE 20 MG/2 ML VIAL IV ONE (06:58)
[2024-03-21] MEDS ORDERED: DEXTROSE (50%) 50ML SYRG IV PRN (07:00)
[2024-03-21 07:42] LABS: Base Excess -0.3 mmol/L (-2.0-3.0)
[2024-03-21] MEDS: methylPREDNISolone SOD SUCC 40 MG/ML VL IV SCH (08:41)
[2024-03-21] MEDS: FUROSEMIDE 40 MG/4 ML VIAL IV ONE (10:04)
[2024-03-21] MEDS: ACCU-CHEK COMFORT CURVE STRIP VI SCH (12:00)
[2024-03-21] MEDS: InsuLIN REG 1unit/0.01ml Soln (100units/ml) SC SCH (12:00)
[2024-03-21] MEDS: FREE WATER GT SCH (12:00)
[2024-03-21] MEDS ORDERED: MIDAZOLAM HCL 2MG/2ML 2ml VIAL (1mg/ml) ONE (13:56)
[2024-03-21] MEDS ORDERED: HYDROmorphone HCL 2 MG/ML VL/or syr ONE (13:56)
[2024-03-21] MEDS ORDERED: fentaNYL CITRATE 100 MCG/2 ML VL ONE (13:56)
[2024-03-21] MEDS: LIDOCAINE W/ EPINEPHRINE 1% 20ML VIAL ONE (14:26)
[2024-03-21] MEDS ORDERED: PROPOFOL 10 MG/ML 20 ML IV ONE (14:28)
[2024-03-21] MEDS: SODIUM BICARB 8.4% 50Meq/50ml SYR INJ IV ONE (16:15)
[2024-03-21] MEDS ORDERED: MEROPENEM VABORBACTAM IV SCH (18:00)
[2024-03-21] MEDS ORDERED: SODIUM CHL 0.9% IV SCH (18:00)
[2024-03-21] MEDS: CeftoloZANE-TAZOB 0.75 GM in D5W 5% 100 ML IV SCH (18:17)
[2024-03-21] MEDS: Nepro With Carb Steady 1 Liter Bottle GT SCH (18:30)
[2024-03-21 20:57] LABS: Chloride 111 mmol/L (98-107); Potassium 5.1 mmol/L (3.5-5.1); Sodium 144 mmol/L (136-145)
[2024-03-21 20:58] LABS: Anion Gap 6 (5-15); Calcium 7.8 mg/dL (8.7-10.4); Carbon Dioxide 27 mmol/L (20-31)
[2024-03-21 21:03] LABS: BUN/Creatinine Ratio 48.7 (10.0-20.0); Blood Urea Nitrogen 76 mg/dL (9-23); Glucose 197 mg/dL (74-106)
[2024-03-21] MEDS: SODIUM ZIRCONIUM CYCL 10 GM PAK PO SCH (22:26)
[2024-03-22] VITALS (108 sets, daily range): BP systolic 97–154; BP diastolic 39–75; PULSE 82–102; RESP 19–22; TEMP 97.5–98.8; O2SAT 97–100
[2024-03-22 04:01] LABS: Basophils # (auto) 0 10 ^3/uL (0-0.2); Basophils % (auto) 0.1 % (0.0-2.0); Eosinophils # (auto) 0 10 ^3/uL (0-0.8); Hematocrit 32.2 % (41.0-53.0); Hemoglobin 10.1 g/dL (13.5-17.5); Lymphocytes # (auto) 0.2 10 ^3/uL (0.4-5.4); Mean Corpuscular Hemoglobin 25.7 pg (28.0-32.0); Mean Corpuscular Hgb Conc. 31.5 g/dL (32.0-36.0); Mean Corpuscular Volume 81.5 fL (80.0-100.0); Monocytes # (auto) 1.5 10 ^3/uL (0-1.3); Monocytes % (auto) 6.8 % (0.0-12.0); Neutrophils # (auto) 20.7 10 ^3/uL (1.6-8.6); Neutrophils % (auto) 92.1 % (37.0-80.0); Platelet Count (auto) 82 10^3/uL (140-450); Red Blood Cells 3.95 10^6/uL (4.5-5.90); Red Cell Distribution Width 15.5 % (11.8-14.3); White Blood Cell 22.4 10^3/uL (4.4-10.8)
[2024-03-22 04:04] LABS: Chloride 111 mmol/L (98-107); Sodium 143 mmol/L (136-145)
[2024-03-22 04:05] LABS: Anion Gap 6 (5-15); Calcium 7.9 mg/dL (8.7-10.4); Carbon Dioxide 26 mmol/L (20-31)
[2024-03-22 04:10] LABS: BUN/Creatinine Ratio 50.3 (10.0-20.0); Glucose 144 mg/dL (74-106)
[2024-03-22 04:33] LABS: Blood Urea Nitrogen 81 mg/dL (9-23)
[2024-03-22 08:34] LABS: Base Excess -0.5 mmol/L (-2.0-3.0)
[2024-03-22] MEDS: FUROSEMIDE 40 MG/4 ML VIAL IV SCH (09:23)
[2024-03-22] MEDS: AMIODARONE HCL 200 MG TAB PO SCH (09:23)
[2024-03-22 16:55] LABS: Base Excess -0.4 mmol/L (-2.0-3.0)
[2024-03-22] MEDS: LACTULOSE 20Gm/30ML SOLN PO PRN (21:01)
[2024-03-23] VITALS (109 sets, daily range): BP systolic 103–168; BP diastolic 37–76; PULSE 86–113; RESP 18–25; TEMP 97.7–100; O2SAT 90–100
[2024-03-23 05:12] LABS: Hemoglobin 9.2 g/dL (13.5-17.5); Mean Corpuscular Hemoglobin 26.1 pg (28.0-32.0); White Blood Cell 21.3 10^3/uL (4.4-10.8)
[2024-03-23 05:13] LABS: Hematocrit 28.3 % (41.0-53.0); Mean Corpuscular Hgb Conc. 32.4 g/dL (32.0-36.0); Mean Corpuscular Volume 80.5 fL (80.0-100.0); Platelet Count (auto) 85 10^3/uL (140-450); Red Blood Cells 3.51 10^6/uL (4.5-5.90); Red Cell Distribution Width 15.2 % (11.8-14.3)
[2024-03-23 05:14] LABS: Chloride 108 mmol/L (98-107)
[2024-03-23 05:15] LABS: Anion Gap 8 (5-15); Carbon Dioxide 25 mmol/L (20-31); Potassium 4.1 mmol/L (3.5-5.1); Sodium 141 mmol/L (136-145)
[2024-03-23 05:21] LABS: BUN/Creatinine Ratio 46.2 (10.0-20.0); Blood Urea Nitrogen 79 mg/dL (9-23); Glucose 134 mg/dL (74-106)
[2024-03-23 05:24] LABS: Basophils % (manual) 0 (0.0-2.0); Blast Cells 0; Eosinophils % (manual) 0 (0-7); Metamyelocytes % 0; Myelocytes % 0; Promyelocytes % 0; Reactive Lymphocytes 0
[2024-03-23 06:48] LABS: Band Neutrophils % (manual) 3; Lymphocytes % (manual) 3 (10.0-50.0); Monocytes % (manual) 4 (0-12); Platelet Estimate Decreased
[2024-03-23 08:19] LABS: Base Excess -0.5 mmol/L (-2.0-3.0)
[2024-03-23] MEDS: FUROSEMIDE 40 MG/4 ML VIAL IV SCH (21:41)
[2024-03-24] VITALS (51 sets, daily range): BP systolic 80–118; BP diastolic 21–67; PULSE 88–140; RESP 20; TEMP 97.5–100.2; O2SAT 64–100
[2024-03-24] MEDS: dilTIAZem 25 MG/5 ML VIAL IV ONE (05:45)
[2024-03-24 08:30] LABS: Hemoglobin 11.6 g/dL (13.5-17.5)
[2024-03-24 08:31] LABS: Hematocrit 37.4 % (41.0-53.0); Mean Corpuscular Hemoglobin 25.7 pg (28.0-32.0); Mean Corpuscular Volume 82.8 fL (80.0-100.0); Platelet Count (auto) 120 10^3/uL (140-450); Red Blood Cells 4.52 10^6/uL (4.5-5.90); White Blood Cell 27.3 10^3/uL (4.4-10.8)
[2024-03-24 08:36] LABS: Chloride 104 mmol/L (98-107); Potassium 4.4 mmol/L (3.5-5.1); Sodium 139 mmol/L (136-145)
[2024-03-24 08:37] LABS: Anion Gap 14 (5-15); Calcium 8.2 mg/dL (8.7-10.4); Carbon Dioxide 21 mmol/L (20-31)
[2024-03-24 08:38] LABS: Basophils % (manual) 0 (0.0-2.0); Blast Cells 0; Eosinophils % (manual) 0 (0-7); Metamyelocytes % 0; Myelocytes % 0; Promyelocytes % 0; Reactive Lymphocytes 0
[2024-03-24 08:42] LABS: BUN/Creatinine Ratio 45.8 (10.0-20.0); Glucose 103 mg/dL (74-106)
[2024-03-24 08:47] LABS: Blood Urea Nitrogen 88 mg/dL (9-23)
[2024-03-24 08:58] LABS: Band Neutrophils % (manual) 48; Lymphocytes % (manual) 4 (10.0-50.0); Monocytes % (manual) 6 (0-12)
[2024-03-24 08:59] LABS: Platelet Estimate Decreased
[2024-03-24 09:44] LABS: Base Excess -10.4 mmol/L (-2.0-3.0)
[2024-03-24] MEDS: ENOXAPARIN SOD 30 MG/0.3 ML SYRINGE SC SCH (10:00)
[2024-03-24] MEDS: methylPREDNISolone SOD SUCC 125 MG/2 ML VL IV SCH (12:13)
== END 2024-03-24 18:34 | DRG 4 ==
LOC: EDBD 12:49 → ER 12:49 → OVERFLOW 21:09 → ICU WEST 03-11 15:08
PROVIDERS: ADMIT Family Medicine; ATTEND Nurse Practitioner Acute Care
PROC: 5A1945Z Respiratory Ventilation, 24-96 Consecutive Hours (ICD-10-PCS; principal; 2024-03-10)
PROC: 0BH18EZ Insertion of Endotracheal Airway into Trachea, Via Natural or Artificial Opening Endoscopic (ICD-10-PCS; 2024-03-10)
PROC: 5A09357 Assistance with Respiratory Ventilation, Less than 24 Consecutive Hours, Continuous Positive Airway Pressure (ICD-10-PCS; 2024-03-10)
PROC: 06HY33Z Insertion of Infusion Device into Lower Vein, Percutaneous Approach (ICD-10-PCS; 2024-03-10)
PROC: XW033E5 Introduction of Remdesivir Anti-infective into Peripheral Vein, Percutaneous Approach, New Technology Group 5 (ICD-10-PCS; 2024-03-11)
PROC: 5A09357 Assistance with Respiratory Ventilation, Less than 24 Consecutive Hours, Continuous Positive Airway Pressure (ICD-10-PCS; 2024-03-14)
PROC: 5A1955Z Respiratory Ventilation, Greater than 96 Consecutive Hours (ICD-10-PCS; 2024-03-15)
PROC: 0BH18EZ Insertion of Endotracheal Airway into Trachea, Via Natural or Artificial Opening Endoscopic (ICD-10-PCS; 2024-03-15)
PROC: 0B9D8ZX Drainage of Right Middle Lung Lobe, Via Natural or Artificial Opening Endoscopic, Diagnostic (ICD-10-PCS; 2024-03-20)
PROC: 0B110F4 Bypass Trachea to Cutaneous with Tracheostomy Device, Open Approach (ICD-10-PCS; 2024-03-21)
DX: A41.9 Sepsis, unspecified organism (principal); U07.1 COVID-19; G93.41 Metabolic encephalopathy; I50.33 Acute on chronic diastolic (congestive) heart failure; J12.82 Pneumonia due to coronavirus disease 2019; R65.21 Severe sepsis with septic shock; J15.1 Pneumonia due to Pseudomonas; J10.08 Influenza due to other identified influenza virus with other specified pneumonia; J96.21 Acute and chronic respiratory failure with hypoxia; J96.22 Acute and chronic respiratory failure with hypercapnia; N17.0 Acute kidney failure with tubular necrosis; J44.1 Chronic obstructive pulmonary disease with (acute) exacerbation; R64 Cachexia; E87.1 Hypo-osmolality and hyponatremia; I13.0 Hypertensive heart and chronic kidney disease with heart failure and stage 1 through stage 4 chronic kidney disease, or unspecified chronic kidney disease; Z68.1 Body mass index [BMI] 19.9 or less, adult; I16.1 Hypertensive emergency; J44.0 Chronic obstructive pulmonary disease with (acute) lower respiratory infection; Z16.24 Resistance to multiple antibiotics; Z16.13 Resistance to carbapenem; Z99.11 Dependence on respirator [ventilator] status; E87.4 Mixed disorder of acid-base balance; D69.6 Thrombocytopenia, unspecified; E87.5 Hyperkalemia; Z66 Do not resuscitate; I46.9 Cardiac arrest, cause unspecified; J43.9 Emphysema, unspecified; N18.9 Chronic kidney disease, unspecified; Z88.5 Allergy status to narcotic agent; Z88.1 Allergy status to other antibiotic agents; Z91.041 Radiographic dye allergy status; Z82.49 Family history of ischemic heart disease and other diseases of the circulatory system; Z82.0 Family history of epilepsy and other diseases of the nervous system; Z82.5 Family history of asthma and other chronic lower respiratory diseases; Z82.3 Family history of stroke
CPT/HCPCS: 31500; 36415; 36600; 71045; 76775; 80048; 80053; 81001; 82270; 82306; 82570; 82728; 82805; 82962; 83605; 83615; 83735; 83880; 83935; 83970; 84100; 84156; 84300; 84443; 84484; 85007; 85014; 85018; 85025; 85027; 85379; 85610; 85730; 86141; 87040; 87045; 87070; 87077; 87081; 87086; 87186; 87205; 87426; 87427; 87804; 93005; 94002; 94003; 94640; 94660; 99291; G0378; J0330; J1100; J1885; J1956; J2250; J2470; J2543; J2704; J7060